=== PATIENT | female | born 1955 | race Caucasian/White ===

== ENCOUNTER 2017-12-23 07:48 | Emergency (ER) | payer OTHER, BC ==
[~2017-12-23] VITALS: Ht 162.6 cm; Wt 68.0 kg
[~2017-12-23 07:48] MED LIST: DICL50TA3 PO; HYDR1CAP2 PO; PIOG45TA PO; [UNRECOGNIZED DRUG - OTHER]
[2017-12-23] MEDS ORDERED: KETOROLAC 60 MG/2 ML VIAL IM ONE ×2 (08:41→10:45)
--- NOTE | 2017-12-23 09:19 | Diagnostic Imaging Report ---
INDICATION: Left shoulder pain and injury COMPARISON: None FINDINGS: 3 views of the left shoulder demonstrate no fracture or dislocation. Minimal degenerative changes seen in the AC and glenohumeral joint. There is no osseous lesion. IMPRESSION: Minimal degenerative joint disease without obvious fracture. Dictated by: Dictated on workstation # [id number]
[2017-12-23] MEDS ORDERED: TRAM-42 PO (11:23)
--- NOTE | 2017-12-23 11:24 | ED Upper Extremity ---
General Chief Complaint: Upper Extremity Stated Complaint: WC, L SHOULDER PAIN AND SWOLLEN HANDS Nursing Triage Note: PT CO OF L SHOULDER WORSENING ON MONDAY CALLED INTO WORK ON MONDAY, STATES L HAND SWOLLEN RINGS TIGHT. Nursing Sepsis Screen: No Definite Risk Source: patient Exam Limitations: no limitations History of Present Illness Date Seen by Provider: Dec 23, 2017 Time Seen by Provider: 08:05 Initial Comments This 62-year-old woman presents to the emergency room with significant left shoulder pain. The pain started on December 21. She recalls no injury. Pain was intense enough that she called into work the next day. She states associated swelling in the left upper extremity causing her rings to be tight. She has been unable to remove her rings. Although she identifies no specific trauma, she does have to do lifting at work. There is no erythema or swelling noted on exam. Patient has pain with range of motion and limited range of motion secondary to pain. She denies any prior injury to the shoulder. She has not been taking any medications except for Tylenol for the pain. She does have some paresthesias extending to her fingers. Pain does appear to be positional. Lidocaine patch used yesterday was not particularly helpful. Patient hollers out in pain with movement of the shoulder or palpation of the shoulder. Allergies and Home Medications Allergies Coded Allergies: Milk (Verified Allergy, Intermediate, 02/25/12) diazepam (Verified Allergy, Intermediate, 02/25/12) morphine (Verified Allergy, Intermediate, 02/25/12) Uncoded Allergies: dimerol (Allergy, Intermediate, 02/25/12) Home Medications Diclofenac Potassium 50 Mg Tablet, 50 MG PO PRN, (Reported) Hydrocodone Bit/Acetaminophen 1 Each Capsule, 1 EACH PO Q6HR PRN, (Reported) Pioglitazone Hcl 45 Mg Tablet, 45 MG PO DAILY, (Reported) Tramadol HCl 50 Mg Tablet, 50 MG PO Q6H PRN for PAIN-MODERATE TO SEVERE, #10 Prescribed by: CRISTIAN KERR on 12/23/17 1123 [levamire] , (Reported) Constitutional: no symptoms reported EENTM: no symptoms reported Respiratory: no symptoms reported Cardiovascular: no symptoms reported Gastrointestinal: no symptoms reported Genitourinary: no symptoms reported Musculoskeletal: see HPI Skin: no symptoms reported Psychiatric/Neurological: See HPI Past Rslnlhk-Trjqpe-Gfandg Hx Patient Social History Alcohol Use: Denies Use Recreational Drug Use: No Smoking Status: Current Everyday Smoker Recent Foreign Travel: No Contact w/Someone Who Travel: No Recent Infectious Disease Expo: No Recent Hopitalizations: No Physical Abuse: No Sexual Abuse: No Immunizations Up To Date Date of Pneumonia Vaccine: Aug 27, 2011 Seasonal Allergies Seasonal Allergies: No Surgeries History of Surgeries: Yes Surgeries: Bladder Surgery, Hysterectomy ("partial"), Orthopedic (right elbow, right knee) Respiratory History of Respiratory Disorde: No Cardiovascular History of Cardiac Disorders: No Neurological History of Neurological Disord: No 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 Genitourinary History of Genitourinary Disor: No Gastrointestinal History of Gastrointestinal Di: No Musculoskeletal History of Musculoskeletal Dis: Yes Musculoskeletal Disorders: Chronic Back Pain Endocrine History of Endocrine Disorders: Yes Endocrine Disorders: Diabetes, Non-Insulin dep HEENT History of HEENT Disorders: No Cancer History of Cancer: No Psychosocial History of Psychiatric Problem: No Suicide Risk Score: 0 Integumentary History of Skin or Integumenta: No Physical Exam Vital Signs Vital Sign - Last 12Hours 12/23/17 08:00 Temp 97.2 Pulse 67 Resp 18 B/P (MAP) 133/80 (97) Pulse Ox 95 O2 Delivery Room Air Capillary Refill : Less Than 3 Seconds General Appearance: WD/WN, mild distress HEENT: PERRL/EOMI, normal ENT inspection Neck: normal inspection Cardiovascular: regular rate, rhythm, no edema, no murmur, other (normal radial pulse) Respiratory: lungs clear, normal breath sounds, no respiratory distress, no accessory muscle use Back: normal inspection Shoulder: No asymmetry, bone tenderness (tenderness with palpation throughout the shoulder but worse on the anterior aspect, especially over the biceps tendon ), No deformity, limited ROM, No swelling Elbow/Forearm: non-tender, no evidence of injury, normal ROM, Left Wrist: Yes normal inspection, Yes non-tender, Yes no evidence of injury, Yes normal ROM Hand: normal inspection, non-tender, no evidence of injury, normal ROM Neurologic/Tendon: normal sensation, normal motor functions Neurologic/Psychiatric: counseling specialist II-XII nml as tested, no motor/sensory deficits, alert, normal mood/affect, oriented x 3 Skin: normal color, warm/dry Progress/Results/Core Measures Results/Orders My Orders Medications Given in ED Vital Signs/I&O Blood Pressure Mean: 97 Progress Note : Progress Note x-ray was negative for acute injury. Patient was felt to likely have a biceps tendinitis. She was started on NSAID therapy with a Toradol injection. A sling was provided for comfort. A note was provided for work. Diagnostic Imaging Diagonstic Imaging: Xray Plain Films/CT/US/NM/MRI: other (left shoulder) Comments Left shoulder x-ray viewed by me and report reviewed. See report below: NAME: [facility] REC#: [id number] PT STATUS: REG ER : 1955 PHYSICIAN: CRISTIAN LUX MD ADMIT DATE: 12/23/17/ER Signed Date of Exam: 12/23/17 SHOULDER, LEFT, 3 VIEWS INDICATION: Left shoulder pain and injury COMPARISON: None FINDINGS: 3 views of the left shoulder demonstrate no fracture or dislocation. Minimal degenerative changes seen in the AC and glenohumeral joint. There is no osseous lesion. IMPRESSION: Minimal degenerative joint disease without obvious fracture. Dictated by: Dictated on workstation # [id number] Dict: 12/23/17 0913 Trans: 12/23/17 1005 Interpreted by: NGOZI BREAUX Electronically signed by: NGOZI BREAUX 12/23/17 1005 Departure Impression Impression: Primary Impression: Biceps tendinitis of left shoulder Additional Impression: Left shoulder pain Qualified Codes: M25.512 - Pain in left shoulder Disposition: 01 HOME, SELF-CARE Condition: Improved Departure-Patient Inst. Decision time for Depature: 11:00 Referrals: CASSANDRA JACKSON MD (PCP/Family) Primary Care Physician Patient Instructions: Tendonitis Add. Discharge Instructions: You may take ibuprofen up to 600 mg every 6 hours as needed for pain. Add Tylenol (acetaminophen) up to 600 mg every 6 hours as needed for additional pain relief. If pain is severe, you may use Ultram (tramadol) as an alternative to Tylenol. You may ice in 20 minute intervals. Use the sling as needed for comfort. Follow-up with your primary care provider or an orthopedic provider as soon as possible. Return to care if symptoms worsen. All discharge instructions reviewed with patient and/or family. Voiced understanding. Scripts Tramadol HCl (Ultram) 50 Mg Tablet 50 MG PO Q6H Y for PAIN-MODERATE TO SEVERE, #10 TAB Prov: CRISTIAN LUX MD 12/23/17 Work/School Note: Work Release Form Date Seen in the Emergency Department: Dec 23, 2017 Return to Work: Dec 24, 2017 Other Restrictions Listed Below: No lifting over 15 pounds with right arm. No lifting with left arm. CRISTIAN LUX MD Dec 23, 2017 11:24
[2017-12-23 11:34] VITALS: BP 129/69
--- OUTSIDE RECORDS SUMMARY | 2017-12-24 10:00 | XMS REPORT | Continuity of Care Document ---
Author Author [facility] Organization [facility] Address Unknown Phone Unavailable Allergies Active Description Code Type Severity Reaction Onset Reported/Identified Relationship to Patient Clinical Status Yes diazepam [id number] Drug Allergy Moderate N/A 02/25/2012 Yes dimerol dimerol Moderate N/A 02/25/2012 Yes milk [id number] Drug Allergy Moderate N/A 02/25/2012 Yes morphine [id number] Drug Allergy Moderate N/A 02/25/2012 Medications There is no data. Problems There is no data. Procedures There is no data. Results There is no data. Encounters ACCT No. Visit Date/Time Discharge Status Pt. Type Provider Facility Loc./Unit Complaint [id number] 02/10/2016 15:51:00 02/10/2016 23:59:59 CLS Outpatient SILVA FREEMAN APRN [facility] QUICK [id number] 12/23/2017 07:50:00 ACT Emergency JOSE J MILLS, CRISTIAN [place] [facility] ER WC, L SHOULDER PAIN AND SWOLLEN HANDS
== END 2017-12-23 11:34 | disposition home or self-care (01) ==
LOC: EDUNIT# 07:48 → ER 07:50
DX: M75.22 Bicipital tendinitis, left shoulder (principal); E11.9 Type 2 diabetes mellitus without complications; F17.200 Nicotine dependence, unspecified, uncomplicated; Z90.710 Acquired absence of both cervix and uterus
CPT/HCPCS: 73030; 99284

== ENCOUNTER → 2017-12-29 | Outpatient (REF) ==
[~2017-12-29] MED LIST changes: +TRAM-42 PO
--- NOTE | 2017-12-29 10:15 | Diagnostic Imaging Report ---
PROCEDURE: MRI left upper extremity without contrast. TECHNIQUE: Multiplanar, multisequence non contrast-enhanced MRI of the left upper extremity was accomplished. INDICATION: Injury to the left shoulder while lifting on 12/21/2017. COMPARISON: Left shoulder radiographs from 12/23/2017 FINDINGS: Multiple sequences demonstrate motion artifact. There are subcortical cystlike changes in the lateral humeral head, consistent with degenerative change. There is mild bone marrow edema at the posterior articular surface of the humeral head, seen on image 14 of series 5. No acute fracture or dislocation is seen. Alignment appears normal. There is tendinosis of the distal supraspinatus and infraspinatus tendons, with a small high-grade partial thickness tear at the distal posterior supraspinatus measuring approximately 4 mm AP. The subscapularis tendon demonstrates mild tendinosis with mild fraying of the cranial most fibers. The teres minor tendon appears intact. The long head of the biceps tendon appears normal in course, with a short segment longitudinal split tear within the bicipital groove (image 17 of series 5). No significant joint effusion is seen. There is minimal fluid in the superior subscapularis recess. Minimal fluid is seen in the subacromial and subdeltoid bursa. The glenoid labrum is suboptimally evaluated in the absence of contrast, however there appears to be irregularity and tearing of the posterior labrum, likely degenerative. No para-labral cysts are seen. The spinoglenoid and suprascapular notches are unremarkable. There are mild degenerative changes in the acromioclavicular joint. The acromion itself has a curved undersurface without significant downsloping or hooking. The coracoclavicular and coracoacromial ligaments are intact. There is mild generalized atrophy of the left rotator cuff without focal muscular atrophy seen. The subcoracoid fat is clear. No axillary lymphadenopathy is seen. IMPRESSION: 1. Tendinosis in the rotator cuff with a very small high-grade partial thickness tear at the distal posterior supraspinatus tendon in the left shoulder. 2. Small amount of fluid in the subacromial and subdeltoid bursa. May represent mild bursitis versus a tiny full thickness fissure component of the supraspinatus tear. 3. Longitudinal split tear of the long head of the biceps tendon in the bicipital groove. 4. Minimal bone marrow edema at the posterior humeral head, may represent mild contusion. Dictated by: Dictated on workstation # [id number]
== END | disposition home or self-care (01) ==
LOC: OCC 08:27
PROVIDERS: ATTEND Nurse Practitioner Family
CPT/HCPCS: 73221

== ENCOUNTER 2022-06-29 06:32 | Emergency (ER) | payer MEDICARE, OTHER ==
[2022-06-29 06:33] VITALS: BP 143/62
--- NOTE | 2022-06-29 06:50 | ED Neurological Problem ---
General Stated Complaint: STROKE LIKE SYMPTOMS Source: patient Exam Limitations: no limitations History of Present Illness Date Seen by Provider: Jun 29, 2022 Time Seen by Provider: 06:30 Initial Comments Patient to the ER by EMS from home with chief complaint that she was getting up to go to the bathroom and could not get her left side of her arm or leg to move. No history of stroke heart disease. She has hypertension but no hyperlipidemia. She is diabetic but not on insulin. EMS remarked that she had left facial droop, flaccid paralysis of her left upper and lower extremity and blood sugar of 138. EKG unremarkable sinus rhythm. She is not a smoker. 2 weeks ago patient had tested positive for COVID and has had a cough ever since. No fevers or chills nausea or vomiting. Allergies and Home Medications Allergies Coded Allergies: diazepam (Verified Allergy, Intermediate, 02/25/12) milk (Verified Allergy, Intermediate, 02/25/12) morphine (Verified Allergy, Intermediate, 02/25/12) Uncoded Allergies: dimerol (Allergy, Intermediate, 02/25/12) Patient Home Medication List Home Medication List Reviewed: Yes Diclofenac Potassium (Cataflam) 50 Mg Tablet, 50 MG PO PRN, (Reported) Entered as Reported by: JORDI RICK on 02/25/12700 Hydrocodone Bit/Acetaminophen (Hydrocodone-Apap 5-500 Cap) 1 Each Capsule, 1 EACH PO Q6HR PRN, (Reported) Entered as Reported by: JORDI RICK on 02/25/12700 Pioglitazone Hcl (Actos) 45 Mg Tablet, 45 MG PO DAILY, (Reported) Entered as Reported by: JORDI RICK on 02/25/12700 Tramadol HCl (Ultram) 50 Mg Tablet, 50 MG PO Q6H PRN for PAIN-MODERATE TO SEVERE Prescribed by: CRISTIAN KERR on 12/23/17 1123 [levamire] , (Reported) Entered as Reported by: JORDI RICK on 02/25/12 07 Review of Systems Review of Systems Constitutional: No chills, No fever; malaise Eyes: Denies Blurred Vision, Denies Drainage Ears, Nose, Mouth, Throat: denies ear pain, denies nose pain Respiratory: cough, phlegm; No short of breath, No wheezing Cardiovascular: No edema, No Hx of Intervention, No palpitations, No syncope, No vascular heart diseas Gastrointestinal: No abdominal pain, No constipation, No diarrhea Genitourinary: No discharge, No dysuria Musculoskeletal: No back pain, No joint pain Skin: No pruritus, No rash Psychiatric/Neurological: Denies Cognitive Dysfunction; Headache; Denies Numbness All Other Systems Reviewed Negative Unless Noted: Yes Past Avzxnfl-Mlhitj-Steabl Hx Patient Social History Tobacco Use?: No Use of E-Cig and/or Vaping dev: No Substance use?: No Seasonal Allergies Seasonal Allergies: No Past Medical History Surgeries: Yes Bladder Surgery, Hysterectomy, Orthopedic Respiratory: No Cardiac: No 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 oz. 68.307171vn; BMI Method:Stated General Appearance: WD/WN, moderate distress HEENT: PERRL/EOMI, normal ENT inspection, TMs normal, pharynx normal Neck: non-tender, full range of motion, supple, normal inspection Respiratory: lungs clear, normal breath sounds, respiratory distress (Mild with oxygen saturation 91% on room air and a loose, nonproductive cough) Cardiovascular: normal peripheral pulses, regular rate, rhythm, no edema Peripheral Pulses: 2+ Radial Pulses (R), 2+ Radial Pulses (L) Gastrointestinal: normal bowel sounds, non tender, soft Extremities: normal range of motion, non-tender, normal capillary refill Neurologic/Psychiatric: alert, normal mood/affect, oriented x 3 Crainal Nerves: normal hearing, normal speech, PERRL (3 mm reactive bilateral), other (GCS 14 eyes open to verbal stimuli) Coordination/Gait: normal finger to nose Motor/Sensory: pronator drift (L), sensory deficit (Left upper and lower extremities), weak motor strength LUE (0 out of 5), weak motor strength LLE (0 out of 5) Skin: normal color, warm/dry Stroke Onset of Symptoms Date of Onset of Symptoms: Jun 28, 2022 Time of Symptom Onset: 20:00 Onset of Symptoms: Yes Symptoms onset unknown: Yes NIH Stroke Scale Assessment Select: Initial Level of Consciousness: 0=Alert (0), Level of Consciousness- Questions: 0=Answers both month/age (0), LOC Commands: 0=Performs both tasks (0), Gaze: Partial Gaze Palsy (1), Visual [place]: 0=No visual loss (0), Facial Movement (Facial Paresis): 2=Partial paralysis (2), Motor Function- Arms Right: 0=No drift (0), Motor Function-Arms Left: 4=No movement (4), Motor Function-Legs Right: 0=No drift (0), Motor Function-Legs Left: 4=No movement (4), Limb Ataxia: 0=Absent (0), Sensory: 2=Severe to total loss (2), Best Language: 1=Mild to moderat aphasia (1), Dysarthria: 0=Normal (0), Extinction & Inattention: 1=Visual,tactile,auditory (1), Total: 15 Stroke Thrombolytic Exclusion Age 18 or Over: Yes Acute intenal hemorrhage: No History of CVA: No Uncontrolled Coagulation Defec: No Intracranial Hemorrhage: No Severe Hypertension: No GI or Bleed: No Subarachnoid Hemorrhage: No Intracranial Neoplasm/Aneurysm: No Oral Anticoagulants: No Surgery or Trauma: No Puncture of Non-Compressible V: No Recent CPR: No Diabetic Hemorrhagic Retinopat: No Organ Biopsy: No Recent Obstetric Delivery: No Glucose: No (138) Significant Hepatic Dysfunctio: No NIH Stoke Scale >22: No Bacterial Endocarditis: No Pericarditis: No Improving Symptoms: No Platelets: No TPA Contraindication: Yes (Outside the therapeutic window) IV - TPa Received IV - TPa Procedure Performed?: No (Outside the window last known well time greater than 3 hours) Progress/Results/Core Measures Results/Orders Lab Results Laboratory Tests Test 06/29/22 06:26 06/29/22 07:20 06/29/22 08:24 Range/Units White Blood Count 12.2 H 4.3-11.0 10^3/uL Red Blood Count 5.42 H 3.80-5.11 10^6/uL Hemoglobin 15.6 11.5-16.0 g/dL Hematocrit 48 35-52 % Mean Corpuscular Volume 88 80-99 fL Mean Corpuscular Hemoglobin 29 25-34 pg Mean Corpuscular Hemoglobin Concent 33 32-36 g/dL Red Cell Distribution Width 14.4 10.0-14.5 % Platelet Count 261 130-400 10^3/uL Mean Platelet Volume 11.7 9.0-12.2 fL Immature Granulocyte % (Auto) 0 % Neutrophils (%) (Auto) 67 42-75 % Lymphocytes (%) (Auto) 17 12-44 % Monocytes (%) (Auto) 12 0-12 % Eosinophils (%) (Auto) 3 0-10 % Basophils (%) (Auto) 1 0-10 % Neutrophils # (Auto) 8.2 H 1.8-7.8 10^3/uL Lymphocytes # (Auto) 2.1 1.0-4.0 10^3/uL Monocytes # (Auto) 1.4 H 0.0-1.0 10^3/uL Eosinophils # (Auto) 0.3 0.0-0.3 10^3/uL Basophils # (Auto) 0.1 0.0-0.1 10^3/uL Immature Granulocyte # (Auto) 0.1 0.0-0.1 10^3/uL Prothrombin Time 13.0 12.2-14.7 SEC INR Comment 0.9 0.8-1.4 Activated Partial Thromboplast Time 41 H 24-35 SEC D-Dimer 1.48 H 0.00-0.49 UG/ML Sodium Level 137 135-145 MMOL/L Potassium Level 4.1 3.6-5.0 MMOL/L Chloride Level 103 98-107 MMOL/L Carbon Dioxide Level 21 21-32 MMOL/L Anion Gap 13 5-14 MMOL/L Blood Urea Nitrogen 9 7-18 MG/DL Creatinine 0.72 0.60-1.30 MG/DL Estimat Glomerular Filtration Rate 90 BUN/Creatinine Ratio 13 Glucose Level 159 H 70-105 MG/DL Calcium Level 9.6 8.5-10.1 MG/DL Corrected Calcium 9.5 8.5-10.1 MG/DL Total Bilirubin 0.6 0.1-1.0 MG/DL Aspartate Amino Transf (AST/SGOT) 16 5-34 U/L Alanine Aminotransferase (ALT/SGPT) 15 0-55 U/L Alkaline Phosphatase 62 40-136 U/L Troponin I < 0.028 <0.028 NG/ML Total Protein 7.5 6.4-8.2 GM/DL Albumin 4.1 3.2-4.5 GM/DL Urine Color YELLOW Urine Clarity CLEAR Urine pH 6.0 5-9 Urine Specific [place] 1.010 L 1.016-1.022 Urine Protein NEGATIVE NEGATIVE Urine Glucose (UA) 3+ H NEGATIVE Urine Ketones NEGATIVE NEGATIVE Urine Nitrite NEGATIVE NEGATIVE Urine Bilirubin NEGATIVE NEGATIVE Urine Urobilinogen 0.2 < = 1.0 MG/DL Urine Leukocyte Esterase NEGATIVE NEGATIVE Urine RBC (Auto) NEGATIVE NEGATIVE Urine RBC RARE /HPF Urine WBC 0-2 /HPF Urine Squamous Epithelial Cells >50 H /HPF Urine Crystals NONE /LPF Urine Bacteria TRACE /HPF Urine Casts NONE /LPF Urine Mucus NEGATIVE /LPF Urine Culture Indicated NO Glucometer 166 H 70-110 MG/DL My Orders Orders - ODRETHA,ALEX J Chest 1 View, Ap/Pa Only (06/29/22 ) Cbc With Automated Diff (06/29/22 06:42) Protime With Inr (06/29/22 06:42) Partial Thromboplastin Time (06/29/22 06:42) Comprehensive Metabolic Panel (06/29/22 06:42) Fibrin Degradation Products (06/29/22 06:42) Troponin I [place] (06/29/22 06:42) Ua Culture If Indicated (06/29/22 06:42) Catheter(Urinary) Insert & Ass 03,15 (06/29/22 06:42) Ekg Tracing (06/29/22 06:42) Nothing By Mouth (06/29/22 Breakfast) Accucheck Stat ONCE (06/29/22 06:42) Ed Iv/Invasive Line Start (06/29/22 06:42) Ed Iv/Invasive Line Start (06/29/22 06:42) Vital Signs Stroke Patient Q15M (06/29/22 06:42) Ct Head Wo-R/O Stroke (06/29/22 06:42) O2 (06/29/22 06:42) Intake & Output 06,14,22 (06/29/22 06:42) Monitor-Rhythm Ecg Trace Only (06/29/22 06:42) Dysphagia Screening Tool Q10MX1 (06/29/22 06:42) Lipid Panel (06/30/22 06:00) Ct Angio Head/Neck (06/29/22 07:10) Ct Head Perfusion W/ Contrast (06/29/22 07:10) Ed Iv/Invasive Line Start (06/29/22 07:11) Ns Iv 1000 Ml (Sodium Chloride 0.9%) (06/29/22 07:15) Iohexol Injection (Omnipaque 350 Mg/Ml 1 (06/29/22 07:15) Received Contrast (Hold Metformin- Contr (06/29/22 07:15) Ns (Ivpb) (Sodium Chloride 0.9% Ivpb Bag (06/29/22 07:15) Sodium Chloride Flush (Catheter Flush Sy (06/29/22 07:15) Fentanyl Inj (Sublimaze Injection) (06/29/22 08:30) Medications Given in ED Current Medications Medications Dose Ordered Sig/Britni Route Start Time Stop Time Status Last Admin Dose Admin Fentanyl Citrate 50 mcg ONCE ONCE IVP 06/29/22 08:30 06/29/22 08:31 DC 06/29/22 09:20 50 MCG Iohexol 150 ml ONCE ONCE IV 06/29/22 07:15 06/29/22 07:17 DC 06/29/22 08:05 150 ML Sodium Chloride 10 ml NEEDED PRN IV 06/29/22 07:15 06/29/22 08:06 10 ML Sodium Chloride 100 ml ONCE ONCE IV 06/29/22 07:15 06/29/22 07:17 DC 06/29/22 08:06 80 ML Vital Signs/I&O 06/29/22 06/29/22 06/29/22 06/29/22 06:33 06:33 06:33 09:40 Temp 36.6 36.0 Pulse 100 100 101 Resp 18 18 15 B/P (MAP) 143/62 143/62 (89) 148/68 Pulse Ox 90 90 90 91 O2 Delivery Room Air Room Air Nasal Cannula O2 Flow Rate 2.00 Progress Progress Note #1: Time: 06:52 Progress Note Blood glucose 138 per EMS. Profound left-sided weakness and rightward gaze. NIH initially 15 points but well outside the window for tPA. Plan to get a CT next. If she does not have intracranial hemorrhage or tumor then the neck step would be a CT angiogram to pursue ischemic stroke. Progress Note #2: Time: 08:42 Progress Note We did discuss the possibility of transfer and procedural intervention with the patient and she and her family were in agreement with doing a procedure if it were offered. Helicopter has been called. Images have been clouded. Initial ECG Impression Date: Jun 29, 2022 Initial ECG Impression Time: 07:04 Initial ECG Rate: 90 Initial ECG Rhythm: Normal Sinus Initial ECG Intervals: Normal Initial ECG Impression: Normal Comment Normal sinus rhythm with an incomplete right bundle branch block. No clinically relevant ST elevation or depression. 1/2-[address] depression in leads II, III and aVF. Diagnostic Imaging Diagonstic Imaging: Xray Plain Films/CT/US/NM/MRI: chest Comments No acute cardiopulmonary process. [facility], [place] NAME: TAY LEDBETTER [facility] REC#: [id number] PT STATUS: REG ER : 1955 PHYSICIAN: ALEX PUGH MD ADMIT DATE: 06/29/22/ER Signed Date of Exam:06/29/22 CHEST 1 VIEW, AP/PA ONLY Indication: Altered mental status. Slurred speech. COMPARISON: None FINDINGS: Single frontal radiograph view the chest was obtained and shows normal cardiac silhouette. Pulmonary vasculature is slightly prominent. There is also mild diffuse prominence of the interstitium. No focal alveolar consolidation, large effusion, nor pneumothorax is seen. Osseous structures show no gross acute abnormalities. IMPRESSION: 1. Mild diffuse prominence of the interstitium. There is no prior available for comparison. Conceivably, findings could be on the basis of chronic interstitial lung disease. Interstitial pneumonia is a consideration, as is mild interstitial pulmonary edema given the slight cephalization the pulmonary vasculature. Dictated by: Dictated on workstation # [id number] Dict: 06/29/22 0702 Trans: 06/29/22 1150 [facility] [id number] Interpreted by: LAVERN ANGELES MD Electronically signed by: LAVERN ANGELES MD 06/29/22 1150 Reviewed: Reviewed by Me Diagonstic Imaging: CT Plain Films/CT/US/NM/MRI: head Comments No acute intracranial hemorrhage, mass-effect, midline shift or tumor. No calvarial fracture. [facility] [place], [place] NAME: TAY LEDBETTER [facility] REC#: [id number] PT STATUS: REG ER : 1955 PHYSICIAN: ALEX PUGH MD ADMIT DATE: 06/29/22/ER Draft Date of Exam:06/29/22 CT HEAD WO-R/O STROKE INDICATION: Altered mental status. Slurred speech TECHNIQUE: Routine non contrast-enhanced axial images were obtained from the skull base to the vertex. Auto Exposure Controls were utilized during the CT exam to meet ALARA standards for radiation dose reduction COMPARISON: None. FINDINGS: The ventricles and cortical sulci are normal in size and contour. There is no midline shift or mass-effect. No acute intra-axial hemorrhage is seen. There are no abnormal areas of increased or decreased density to suggest acute hemorrhage or edema. No extra-axial masses or collections are present. The bony calvarium is intact. The visualized paranasal sinuses are unremarkable. The mastoid air cells are clear. IMPRESSION: 1. No acute intracranial abnormality. No CT evidence of mass, acute infarct or intracranial hemorrhage. Results were called to Dr. Pugh by Dr. Angeles at 0700 hours on 06/29/2022. Dictated on workstation # [id number] Dict: 06/29/22 0700 Trans: 06/29/22 0704 [facility] [id number] Interpreted by: LAVERN ANGELES MD Electronically signed by: Reviewed: Reviewed by Me, Discussed w/Radiologist Diagonstic Imaging: CT (angio) Plain Films/CT/US/NM/MRI: head (neck) Comments distal right M1 into multiple MCA vessels. Inf branch has reconstitution changes. Occ Right Cervical ICA starting at skull base and reconstituted distally. [facility] [place], [place] NAME: TAY LEDBETTER [facility] REC#: [id number] PT STATUS: REG ER : 1955 PHYSICIAN: ALEX PUGH MD ADMIT DATE: 06/29/22/ER Draft Date of Exam:06/29/22 CT ANGIO HEAD/NECK CLINICAL INDICATION: Patient with left-sided weakness. EXAMS: 1: Head CT with IV contrast. Auto Exposure Controls were utilized during the CT exam to meet ALARA standards for radiation dose reduction. 2: CT angiogram of the head and neck performed with 75 cc of Omnipaque 350 IV contrast. Sagittal and coronal MIP reformations were created for better visualization of vascular anatomy. COMPARISON: Head CT without contrast dated 06/29/2022. FINDINGS: HEAD CT: There is the appearance of subtle loss of ramires-white matter distinction involving the lateral aspect of the right frontal lobe seen on series 3, images 28 through 33. There is no intracranial hemorrhage or abnormal IV contrast enhancement. The brain parenchymal volume appears appropriate for patient's age. Mild chronic small vessel ischemic disease is noted. There is normal ramires-white matter distinction. There is no significant midline shift or herniation. There is no evidence of hydrocephalus. The basal cisterns are unremarkable. The skull, extracranial soft tissue, and orbits are unremarkable. The paranasal sinuses are unremarkable. Temporal bones show no significant abnormality. CT ANGIOGRAM: There is dense contrast bolus within the right subclavian vein and superior vena cava which causes streak artifact obscuring portions of the aortic arch and proximal great vessels. There is mild stenosis involving the origin of the right subclavian artery related to atherosclerotic disease; otherwise, the remainder of the right subclavian artery is patent. The left subclavian artery is patent. The brachiocephalic artery is patent. There is motion stairstep artifact obscuring the bilateral common carotid arteries. There is artifact obscuring portions of the right common carotid artery with no definite significant stenosis seen. The right ECA is patent. There is dense atherosclerotic disease involving the cervical right ICA bulb which is obscured by streak artifact. There appears to be a greater than 70% stenosis but less than near occlusion involving the origin and proximal cervical right ICA. There is contrast seen within the cervical right ICA distal to this area which progressively demonstrates significant narrowing. There is at least 70% stenosis involving the mid cervical right ICA and distal cervical right ICA with occlusion seen at the proximal petrous right ICA region. There is reconstitution of the right ICA terminus region. The right M1 MCA is patent but demonstrates occlusion in the distal right M1 MCA/genu region. There is concern for intravascular thrombus within the distal right M1 MCA/genu region which extends into the proximal inferior branch of the right M2 MCA which is reconstituted in the region of the sylvian fissure. There is also concern for intravascular thrombus within the proximal aspect of the superior branch of the right M2 MCA with minimal reconstitution distally. The anterior temporal branch of the right MCA appears patent. The ACAs and distal branches are patent. The CA and distal branches are patent. There is significant motion artifact obscuring the mid left common carotid artery limiting evaluation; otherwise, the left common carotid artery is patent. The left ECA is patent. There is motion and atherosclerotic calcification involving the origin of the cervical left ICA which appears to involve grossly at least 70% stenosis. The remainder of the cervical left ICA is patent. There are areas of atherosclerotic disease and mild narrowing involving the cavernous and paraclinoid left ICA. The petrous, cavernous, and paraclinoid ICA are otherwise patent. There is motion artifact obscuring the proximal and mid bilateral cervical vertebral arteries; otherwise, the visualized mid to distal cervical vertebral arteries are patent. The bilateral PICA, intradural vertebral arteries, basilar artery, bilateral superior cerebellar arteries, and bilateral cafeteria cook and distal branches are patent. The dural venous sinuses are patent. The neck soft tissue structures show no significant abnormality. There is emphysematous lung disease noted in the upper lung [place]. There are cervical spine vertebral body spurs and facet arthropathy. IMPRESSION: 1: There appears to be very subtle loss of ramires-white matter distinction involving the lateral right frontal lobe region, concerning for early acute infarct changes. There is no intracranial hemorrhage or abnormal IV contrast enhancement. 2: There is large vessel occlusion with complete occlusion of the distal cervical right ICA which is reconstituted at the right ICA terminus region. 3: There is large vessel occlusion with concern for intravascular thrombus involving the distal right M1 MCA/genu region extending into the inferior and superior branches of the right M2 MCA. There is reconstitution of the inferior branches of the right M2 MCA in the sylvian fissure region. There is minimal reconstitution of the superior branches of the right M2 MCA region. 4: There is significant motion artifact and beam hardening artifact obscuring multiple areas of the neck vascular structures as described above. 5: There is concern for greater than 70% stenosis but less than near occlusion involving the bilateral cervical ICA. 6: The results of this report were discussed with Dr. Alex Pugh via the telephone on 06/29/2022 at 0830 hours. Dictated on workstation # [id number] Dict: 06/29/22 0812 Trans: 06/29/22 0900 [id number] Interpreted by: MIKEL BRAUN MD Electronically signed by: Reviewed: Reviewed by Me, Discussed w/Radiologist Diagonstic Imaging: CT Plain Films/CT/US/NM/MRI: head (Perfusion scan) Comments Perfusion was uninterpretable due to bolus timing. Reviewed: Reviewed by Me, Discussed w/Radiologist Consults : Consults Notes 0700: [facility] Neurologist bd special education teacher. Dr. Ibarra: High suspicion for a large vessel occlusion. Get a CT angiogram and CT perfusion please. 0832: Discussed the case with Dr. Bailey and he accepts the patient to the hospital second floor [facility]. We have called for helicopter for transport. Departure Impression Primary Impression: Cerebrovascular accident due to cerebral artery occlusion Additional Impression: ICAO (internal carotid artery occlusion) Qualified Codes: I65.21 - Occlusion and stenosis of right carotid artery Disposition: XF [facility] HOSP Condition: Critical Transfer Transfer Reason: Exceeds level of care Time Spoke to Accepting Phy: 08:[address] Hale and accepts to [facility] for ischemic stroke large vessel occlusion. Two helicopter services have declined due to weather. Transfer Facility: [facility] Method of Transfer: EMS Departure-Patient Inst. Referrals: CASSANDRA JACKSON MD (PCP/Family) Primary Care Physician ALEX PUGH Jun 29, 2022 06:50
[2022-06-29 06:55] LABS: BASOPHILS # (AUTO) 0.1 10^3/uL (0.0-0.1); BASOPHILS % (AUTO) 1 % (0-10); EOSINOPHILS # (AUTO) 0.3 10^3/uL (0.0-0.3); EOSINOPHILS % (AUTO) 3 % (0-10); HEMATOCRIT 48 % (35-52); HEMOGLOBIN 15.6 g/dL (11.5-16.0); LYMPHOCYTES # (AUTO) 2.1 10^3/uL (1.0-4.0); LYMPHOCYTES % (AUTO) 17 % (12-44); MEAN CORPUSCULAR HEMOGLOBIN 29 pg (25-34); MEAN CORPUSCULAR HGB CONC 33 g/dL (32-36); MEAN CORPUSCULAR VOLUME 88 fL (80-99); MEAN PLATELET VOLUME 11.7 fL (9.0-12.2); MONOCYTES # (AUTO) 1.4 10^3/uL (0.0-1.0); MONOCYTES % (AUTO) 12 % (0-12); NEUTROPHILS # (AUTO) 8.2 10^3/uL (1.8-7.8); NEUTROPHILS % (AUTO) 67 % (42-75); PLATELET COUNT 261 10^3/uL (130-400); WHITE BLOOD COUNT 12.2 10^3/uL (4.3-11.0)
[2022-06-29 06:59] LABS: ALBUMIN 4.1 GM/DL (3.2-4.5); CHLORIDE 103 MMOL/L (98-107); POTASSIUM 4.1 MMOL/L (3.6-5.0); SODIUM 137 MMOL/L (135-145)
[2022-06-29 07:01] LABS: CALCIUM 9.6 MG/DL (8.5-10.1)
[2022-06-29 07:02] LABS: GLUCOSE 159 MG/DL (70-105); TOTAL PROTEIN 7.5 GM/DL (6.4-8.2)
[2022-06-29 07:03] LABS: CARBON DIOXIDE 21 MMOL/L (21-32)
[2022-06-29 07:04] LABS: BILIRUBIN,TOTAL 0.6 MG/DL (0.1-1.0)
--- NOTE | 2022-06-29 07:04 | Diagnostic Imaging Report ---
INDICATION: Altered mental status. Slurred speech TECHNIQUE: Routine non contrast-enhanced axial images were obtained from the skull base to the vertex. Auto Exposure Controls were utilized during the CT exam to meet ALARA standards for radiation dose reduction COMPARISON: None. FINDINGS: The ventricles and cortical sulci are normal in size and contour. There is no midline shift or mass-effect. No acute intra-axial hemorrhage is seen. There are no abnormal areas of increased or decreased density to suggest acute hemorrhage or edema. No extra-axial masses or collections are present. The bony calvarium is intact. The visualized paranasal sinuses are unremarkable. The mastoid air cells are clear. IMPRESSION: 1. No acute intracranial abnormality. No CT evidence of mass, acute infarct or intracranial hemorrhage. Results were called to Dr. Pugh by Dr. Angeles at 0700 hours on 06/29/2022. Dictated by: Dictated on workstation # [id number]
[2022-06-29 07:05] LABS: ALKALINE PHOSPHATASE 62 U/L (40-136); CREATININE SERUM 0.72 MG/DL (0.60-1.30); GFR ESTIMATED 90
[2022-06-29 07:06] LABS: BUN/CREATININE RATIO 13
[2022-06-29 07:07] LABS: FIBRIN DEGRADATION PRODUCTS 1.48 UG/ML (0.00-0.49); INR 0.9 (0.8-1.4)
--- NOTE | 2022-06-29 07:07 | Diagnostic Imaging Report ---
Indication: Altered mental status. Slurred speech. COMPARISON: None FINDINGS: Single frontal radiograph view the chest was obtained and shows normal cardiac silhouette. Pulmonary vasculature is slightly prominent. There is also mild diffuse prominence of the interstitium. No focal alveolar consolidation, large effusion, nor pneumothorax is seen. Osseous structures show no gross acute abnormalities. IMPRESSION: 1. Mild diffuse prominence of the interstitium. There is no prior available for comparison. Conceivably, findings could be on the basis of chronic interstitial lung disease. Interstitial pneumonia is a consideration, as is mild interstitial pulmonary edema given the slight cephalization the pulmonary vasculature. Dictated by: Dictated on workstation # [id number]
[2022-06-29 07:08] LABS: ALANINE AMINOTRANSFERASE 15 U/L (0-55)
[2022-06-29] MEDS ORDERED: IOHEXOL 350 MG/ML 150 ML (OMNIPAQUE 350) VIAL IV ONE (07:15)
[2022-06-29] MEDS ORDERED: CATHETER FLUSH 10 ML SYR IV PRN (07:15)
[2022-06-29] MEDS ORDERED: NS 100 ML (IVPB) BAG IV ONE (07:15)
[2022-06-29] MEDS ORDERED: HOLD METFORMIN - RECEIVED CONTRAST 20 ML VIAL IV SCH (07:15)
[2022-06-29] MEDS ORDERED: NS IV 1000 ML 1,000 ML IV SCH (07:15)
[2022-06-29 07:31] LABS: BILIRUBIN,URINE NEGATIVE (NEGATIVE); CLARITY,URINE CLEAR; COLOR,URINE YELLOW; GLUCOSE, URINE (UA) 3+ (NEGATIVE); KETONES,URINE NEGATIVE (NEGATIVE); LEUKOCYTE ESTERASE ,URINE NEGATIVE (NEGATIVE); NITRITE,URINE NEGATIVE (NEGATIVE); PROTEIN,URINE NEGATIVE (NEGATIVE)
[2022-06-29] MEDS ORDERED: fentaNYL INJ 100 MCG/2 ML AMP IVP ONE (08:30)
[2022-06-29 08:55] LABS: RBC,URINE RARE /HPF
[2022-06-29 08:56] LABS: BACTERIA,URINE TRACE /HPF; SQUAMOUS EPITHELIAL CELL,UR >50 /HPF; WBC,URINE 0-2 /HPF
--- NOTE | 2022-06-29 09:01 | Diagnostic Imaging Report ---
CLINICAL INDICATION: Patient with left-sided weakness. EXAMS: 1: Head CT with IV contrast. Auto Exposure Controls were utilized during the CT exam to meet ALARA standards for radiation dose reduction. 2: CT angiogram of the head and neck performed with 75 cc of Omnipaque 350 IV contrast. Sagittal and coronal MIP reformations were created for better visualization of vascular anatomy. COMPARISON: Head CT without contrast dated 06/29/2022. FINDINGS: HEAD CT: There is the appearance of subtle loss of ramires-white matter distinction involving the lateral aspect of the right frontal lobe seen on series 3, images 28 through 33. There is no intracranial hemorrhage or abnormal IV contrast enhancement. The brain parenchymal volume appears appropriate for patient's age. Mild chronic small vessel ischemic disease is noted. There is normal ramires-white matter distinction. There is no significant midline shift or herniation. There is no evidence of hydrocephalus. The basal cisterns are unremarkable. The skull, extracranial soft tissue, and orbits are unremarkable. The paranasal sinuses are unremarkable. Temporal bones show no significant abnormality. CT ANGIOGRAM: There is dense contrast bolus within the right subclavian vein and superior vena cava which causes streak artifact obscuring portions of the aortic arch and proximal great vessels. There is mild stenosis involving the origin of the right subclavian artery related to atherosclerotic disease; otherwise, the remainder of the right subclavian artery is patent. The left subclavian artery is patent. The brachiocephalic artery is patent. There is motion stairstep artifact obscuring the bilateral common carotid arteries. There is artifact obscuring portions of the right common carotid artery with no definite significant stenosis seen. The right ECA is patent. There is dense atherosclerotic disease involving the cervical right ICA bulb which is obscured by streak artifact. There appears to be a greater than 70% stenosis but less than near occlusion involving the origin and proximal cervical right ICA. There is contrast seen within the cervical right ICA distal to this area which progressively demonstrates significant narrowing. There is at least 70% stenosis involving the mid cervical right ICA and distal cervical right ICA with occlusion seen at the proximal petrous right ICA region. There is reconstitution of the right ICA terminus region. The right M1 MCA is patent but demonstrates occlusion in the distal right M1 MCA/genu region. There is concern for intravascular thrombus within the distal right M1 MCA/genu region which extends into the proximal inferior branch of the right M2 MCA which is reconstituted in the region of the sylvian fissure. There is also concern for intravascular thrombus within the proximal aspect of the superior branch of the right M2 MCA with minimal reconstitution distally. The anterior temporal branch of the right MCA appears patent. The ACAs and distal branches are patent. The MCAs and distal branches are patent. There is significant motion artifact obscuring the mid left common carotid artery limiting evaluation; otherwise, the left common carotid artery is patent. The left ECA is patent. There is motion and atherosclerotic calcification involving the origin of the cervical left ICA which appears to involve grossly at least 70% stenosis. The remainder of the cervical left ICA is patent. There are areas of atherosclerotic disease and mild narrowing involving the cavernous and paraclinoid left ICA. The petrous, cavernous, and paraclinoid ICA are otherwise patent. There is motion artifact obscuring the proximal and mid bilateral cervical vertebral arteries; otherwise, the visualized mid to distal cervical vertebral arteries are patent. The bilateral PICA, intradural vertebral arteries, basilar artery, bilateral superior cerebellar arteries, and bilateral cloth mender and distal branches are patent. The dural venous sinuses are patent. The neck soft tissue structures show no significant abnormality. There is emphysematous lung disease noted in the upper lung montalvo. There are cervical spine vertebral body spurs and facet arthropathy. IMPRESSION: 1: There appears to be very subtle loss of ramires-white matter distinction involving the lateral right frontal lobe region, concerning for early acute infarct changes. There is no intracranial hemorrhage or abnormal IV contrast enhancement. 2: There is large vessel occlusion with complete occlusion of the distal cervical right ICA which is reconstituted at the right ICA terminus region. 3: There is large vessel occlusion with concern for intravascular thrombus involving the distal right M1 MCA/genu region extending into the inferior and superior branches of the right M2 MCA. There is reconstitution of the inferior branches of the right M2 MCA in the sylvian fissure region. There is minimal reconstitution of the superior branches of the right M2 MCA region. 4: There is significant motion artifact and beam hardening artifact obscuring multiple areas of the neck vascular structures as described above. 5: There is concern for greater than 70% stenosis but less than near occlusion involving the bilateral cervical ICA. 6: The results of this report were discussed with Dr. Alex Pugh via the telephone on 06/29/2022 at 0830 hours. Dictated by: Dictated on workstation # [id number]
[2022-06-29 09:40] VITALS: BP 148/68
== END 2022-06-29 09:40 | disposition short-term general hospital (02) ==
LOC: EDUNIT# 06:32 → ER 06:35
DX: I63.50 Cerebral infarction due to unspecified occlusion or stenosis of unspecified cerebral artery (principal); I65.21 Occlusion and stenosis of right carotid artery; Z86.16 Personal history of COVID-19
CPT/HCPCS: 0042T; 36415; 51702; 70450; 70496; 70498; 71045; 80053; 81000; 82947; 84484; 85025; 85379; 85610; 85730; 93005; 93041

== ENCOUNTER 2022-12-03 08:22 | Emergency (ER) | payer MEDICARE, OTHER ==
[~2022-12-03] VITALS: Ht 162 cm; Wt 62.0 kg
[2022-12-03 08:45] LABS: BASOPHILS # (AUTO) 0.1 10^3/uL (0.0-0.1); BASOPHILS % (AUTO) 1 % (0-10); EOSINOPHILS # (AUTO) 0.2 10^3/uL (0.0-0.3); EOSINOPHILS % (AUTO) 2 % (0-10); HEMATOCRIT 42 % (35-52); HEMOGLOBIN 13.5 g/dL (11.5-16.0); LYMPHOCYTES # (AUTO) 1.9 10^3/uL (1.0-4.0); LYMPHOCYTES % (AUTO) 21 % (12-44); MEAN CORPUSCULAR HEMOGLOBIN 28 pg (25-34); MEAN CORPUSCULAR HGB CONC 32 g/dL (32-36); MEAN CORPUSCULAR VOLUME 88 fL (80-99); MEAN PLATELET VOLUME 10.1 fL (9.0-12.2); MONOCYTES # (AUTO) 1.1 10^3/uL (0.0-1.0); MONOCYTES % (AUTO) 12 % (0-12); NEUTROPHILS # (AUTO) 5.8 10^3/uL (1.8-7.8); NEUTROPHILS % (AUTO) 64 % (42-75); PLATELET COUNT 293 10^3/uL (130-400); WHITE BLOOD COUNT 8.9 10^3/uL (4.3-11.0)
[2022-12-03] MEDS ORDERED: NS IV 500 ML 500 ML IV ONE (08:45)
[2022-12-03] MEDS ORDERED: HALOPERIDOL 5 MG/ML (HALDOL) VIAL IV ONE (08:45)
[2022-12-03 08:56] LABS: ALBUMIN 3.7 GM/DL (3.2-4.5); POTASSIUM 4.5 MMOL/L (3.6-5.0)
[2022-12-03 08:57] LABS: CALCIUM 9.2 MG/DL (8.5-10.1)
[2022-12-03 08:59] LABS: BILIRUBIN,URINE NEGATIVE (NEGATIVE); CLARITY,URINE CLOUDY; COLOR,URINE YELLOW; GLUCOSE, URINE (UA) 3+ (NEGATIVE); KETONES,URINE NEGATIVE (NEGATIVE); LEUKOCYTE ESTERASE ,URINE 2+ (NEGATIVE); NITRITE,URINE POSITIVE (NEGATIVE); PH,URINE 5.5 (5-9); PROTEIN,URINE TRACE (NEGATIVE)
[2022-12-03 08:59] LABS: TOTAL PROTEIN 6.9 GM/DL (6.4-8.2)
[2022-12-03 09:00] LABS: BILIRUBIN,TOTAL 0.4 MG/DL (0.1-1.0)
[2022-12-03 09:02] LABS: CREATININE SERUM 0.63 MG/DL (0.60-1.30)
[2022-12-03 09:19] LABS: BACTERIA,URINE FEW /HPF; SQUAMOUS EPITHELIAL CELL,UR RARE /HPF; WBC,URINE TNTC /HPF
--- NOTE | 2022-12-03 09:24 | ED General ---
General Chief Complaint: Altered Mental Status Stated Complaint: AMS Nursing Triage Note: PT ARRIVED PER EMS, PT HAS ALTERED MENTAL STATUS FROM HER NORMAL, PT VERY CONFUSED TODAY, PT O2 SAT 88% ON RA. PT HAS HX OF CVA. PT HAS BOOT ON L FOOT FOR FOOT DROP. PT TEARFUL AND VERY ANXIOUS. PT IS BEING TREATED FOR UTI Source of Information: Patient, EMS, Spouse Exam Limitations: Physical Impairments History of Present Illness Date Seen by Provider: Dec 03, 2022 Time Seen by Provider: 08:24 Initial Comments [facility] with altered mental status and talking about docks. She has had previous stroke but has apparently progressed in rehab at the [facility]. Reportedly she has been able to stand with assistance and is usually oriented. EMS was called for the change in mental status with babbling and anxiety and talking about docks. They report normal blood sugar and normal blood pressure. He did did not note any falls or injury. Patient will intermittently be agitated and then intermittently able to answer questions well. arrived shortly after patient's arrival by EMS and he relates history of stroke and that this is a change. She does recognize him and he is able to calm her with reassurance. Apparently patient has had recent urinary tract infection that may have been a yeast infection as she is only on Diflucan. She is diabetic and has insulin orders on [facility] medication records. No report of recent illness by EMS report or from other than recent stroke. Review of previous records shows ER visit on June 29 for concerns for stroke. I did review CT angiogram done at that time that shows right ICA occlusion as well as right MCA M1 and M2 occlusion. Patient was transferred to [facility] for further stroke work-up and evaluation given large vessel occlusion. Timing/Duration: 1 Hour Severity: Moderate Associated Systoms: Other (Altered mental status/delirium) Allergies and Home Medications Allergies Coded Allergies: diazepam (Verified Allergy, Intermediate, 02/25/12) milk (Verified Allergy, Intermediate, 02/25/12) morphine (Verified Allergy, Intermediate, 02/25/12) Uncoded Allergies: dimerol (Allergy, Intermediate, 02/25/12) Patient Home Medication List Home Medication List Reviewed: Yes Diclofenac Potassium (Cataflam) 50 Mg Tablet, 50 MG PO PRN, (Reported) Entered as Reported by: JORDI RICK on 02/25/12 0701 Hydrocodone Bit/Acetaminophen (Hydrocodone-Apap 5-500 Cap) 1 Each Capsule, 1 EACH PO Q6HR PRN, (Reported) Entered as Reported by: JORDI RICK on 02/25/12700 Pioglitazone Hcl (Actos) 45 Mg Tablet, 45 MG PO DAILY, (Reported) Entered as Reported by: JORDI RICK on 02/25/12700 Tramadol HCl (Ultram) 50 Mg Tablet, 50 MG PO Q6H PRN for PAIN-MODERATE TO SEVERE Prescribed by: CRISTIAN KERR on 12/23/17 1123 [levamire] , (Reported) Entered as Reported by: JORDI RICK on 02/25/12700 Review of Systems Review of Systems Constitutional: see HPI; No chills, No fever To obtain review of systems due to altered mental status/delirium. Past Kaexdtl-Lfjabr-Rtgbwe Hx Patient Social History Tobacco Use?: No Smoking Status: Former Smoker Substance use?: No Alcohol Use?: No Pt feels they are or have been: No Immunizations Up To Date Influenza Vaccine Up-to-Date: No; Not Current First/Initial COVID19 Vaccinat: UNKNOWN DATE Second COVID19 Vaccination Jack: UNKNOWN DATE Third COVID19 Vaccination Date: UNKNOWN DATE Seasonal Allergies Seasonal Allergies: No Past Medical History Surgery/Hospitalization HX: STROKE,DIABETES Surgeries: Yes Bladder Surgery, Hysterectomy, Orthopedic Respiratory: No Cardiac: No Neurological: No SONG LYRICIST History: Hysterectomy Genitourinary: No Gastrointestinal: No Musculoskeletal: Yes Chronic Back Pain Endocrine: Yes Diabetes, Non-Insulin dep HEENT: No Cancer: No Psychosocial: No Integumentary: No Family Medical History Reviewed Nursing Family Hx Physical Exam Vital Signs Vital Signs - First Documented 12/03/22 08:25 Temp 36.0 Pulse 99 Resp 18 B/P (MAP) 117/73 (88) Pulse Ox 96 O2 Delivery Nasal Cannula O2 Flow Rate 2.00 Capillary Refill : Less Than 3 Seconds Height, Weight, BMI Height: 5'4.00" Weight: 150lbs. oz. 68.805446bf; 23.00 BMI Method:Stated General Appearance: Anxious, Mild Distress HEENT: PERRL/EOMI, Pharynx Normal Neck: Non Tender, Supple Respiratory: Lungs Clear, Normal Breath Sounds Cardiovascular: No Murmur, Tachycardia Gastrointestinal: Non Tender, Soft Back: Normal Inspection, No CVA Tenderness, No Vertebral Tenderness Extremity: Non Tender, No Calf Tenderness, No Pedal Edema, Other (Boot to the left foot due to history of foot drop) Neurologic/Psychiatric: Alert, Other ( disoriented to situation, time and place. Does know self and recognize .) Skin: Normal Color, Warm/Dry Focused Exam Lactate Level 12/03/22 08:35: Lactic Acid Level 1.02 Lactic Acid Level Laboratory Tests Test 12/03/22 08:35 Lactic Acid Level 1.02 MMOL/L (0.50-2.00) Progress/Results/Core Measures Suspected Sepsis SIRS Temperature: Pulse: 99 Respiratory Rate: 18 Laboratory Tests 12/03/22 08:35: White Blood Count 8.9 Blood Pressure 117 /73 Mean: 88 12/03/22 08:35: Lactic Acid Level 1.02 Laboratory Tests 12/03/22 08:35: Creatinine 0.63, Platelet Count 293, Total Bilirubin 0.4 Results/Orders Lab Results Laboratory Tests Test 12/03/22 08:35 12/03/22 08:50 Range/Units White Blood Count 8.9 4.3-11.0 10^3/uL Red Blood Count 4.82 3.80-5.11 10^6/uL Hemoglobin 13.5 11.5-16.0 g/dL Hematocrit 42 35-52 % Mean Corpuscular Volume 88 80-99 fL Mean Corpuscular Hemoglobin 28 25-34 pg Mean Corpuscular Hemoglobin Concent 32 32-36 g/dL Red Cell Distribution Width 15.1 H 10.0-14.5 % Platelet Count 293 130-400 10^3/uL Mean Platelet Volume 10.1 9.0-12.2 fL Immature Granulocyte % (Auto) 0 % Neutrophils (%) (Auto) 64 42-75 % Lymphocytes (%) (Auto) 21 12-44 % Monocytes (%) (Auto) 12 0-12 % Eosinophils (%) (Auto) 2 0-10 % Basophils (%) (Auto) 1 0-10 % Neutrophils # (Auto) 5.8 1.8-7.8 10^3/uL Lymphocytes # (Auto) 1.9 1.0-4.0 10^3/uL Monocytes # (Auto) 1.1 H 0.0-1.0 10^3/uL Eosinophils # (Auto) 0.2 0.0-0.3 10^3/uL Basophils # (Auto) 0.1 0.0-0.1 10^3/uL Immature Granulocyte # (Auto) 0.0 0.0-0.1 10^3/uL Sodium Level 139 135-145 MMOL/L Potassium Level 4.5 3.6-5.0 MMOL/L Chloride Level 105 98-107 MMOL/L Carbon Dioxide Level 24 21-32 MMOL/L Anion Gap 10 5-14 MMOL/L Blood Urea Nitrogen 8 7-18 MG/DL Creatinine 0.63 0.60-1.30 MG/DL Estimat Glomerular Filtration Rate 96 BUN/Creatinine Ratio 13 Glucose Level 118 H 70-105 MG/DL Lactic Acid Level 1.02 0.50-2.00 MMOL/L Calcium Level 9.2 8.5-10.1 MG/DL Corrected Calcium 9.4 8.5-10.1 MG/DL Total Bilirubin 0.4 0.1-1.0 MG/DL Aspartate Amino Transf (AST/SGOT) 17 5-34 U/L Alanine Aminotransferase (ALT/SGPT) 18 0-55 U/L Alkaline Phosphatase 60 40-136 U/L C-Reactive Protein High Sensitivity 0.21 0.00-0.50 MG/DL Total Protein 6.9 6.4-8.2 GM/DL Albumin 3.7 3.2-4.5 GM/DL Thyroid Stimulating Hormone (TSH) 3.54 0.35-4.94 UIU/ML Urine Color YELLOW Urine Clarity CLOUDY Urine pH 5.5 5-9 Urine Specific [place] 1.020 1.016-1.022 Urine Protein TRACE H NEGATIVE Urine Glucose (UA) 3+ H NEGATIVE Urine Ketones NEGATIVE NEGATIVE Urine Nitrite POSITIVE H NEGATIVE Urine Bilirubin NEGATIVE NEGATIVE Urine Urobilinogen 0.2 < = 1.0 MG/DL Urine Leukocyte Esterase 2+ H NEGATIVE Urine RBC (Auto) 3+ H NEGATIVE Urine RBC NONE /HPF Urine WBC TNTC H /HPF Urine Squamous Epithelial Cells RARE /HPF Urine Crystals NONE /LPF Urine Bacteria FEW H /HPF Urine Casts NONE /LPF Urine Mucus NEGATIVE /LPF Urine Culture Indicated YES My Orders Orders - JUAN CROWELL MD Chest 1 View, Ap/Pa Only (12/03/22 08:32) Cbc With Automated Diff (12/03/22 08:32) Comprehensive Metabolic Panel (12/03/22 08:32) Hs C Reactive Protein (12/03/22 08:32) Thyroid Stimulating Hormone (12/03/22 08:32) Ua Culture If Indicated (12/03/22 08:32) Ed Iv/Invasive Line Start (12/03/22 08:32) Ns Iv 500 Ml (Sodium Chloride 0.9%) (12/03/22 08:45) Ct Head Wo (12/03/22 08:32) Haloperidol Injection (Haldol Injectio (12/03/22 08:45) Urine Culture (12/03/22 08:50) Lactic Acid Analyzer (12/03/22 09:31) Blood Culture (12/03/22 09:31) Doxycycline Injection (Vibramycin Inject (12/03/22 09:45) Ceftriaxone 1 Gm Pre-Mix (Rocephin 1 Gm (12/03/22 09:36) Medications Given in ED Current Medications Medications Dose Ordered Sig/Britni Route Start Time Stop Time Status Last Admin Dose Admin Doxycycline Hyclate 100 mg/ Sodium Chloride 100 ml @ 100 mls/hr ONCE ONCE IV 12/03/22 09:45 12/03/22 10:44 DC 12/03/22 10:28 100 MLS/HR Haloperidol Lactate 2.5 mg ONCE ONCE IV 12/03/22 08:45 12/03/22 08:46 DC 12/03/22 08:41 2.5 MG Sodium Chloride 500 ml @ 0 mls/hr Q0M ONCE IV 12/03/22 08:45 12/03/22 08:46 DC 12/03/22 08:41 500 MLS/HR Vital Signs/I&O 12/03/22 08:25 Temp 36.0 Pulse 99 Resp 18 B/P (MAP) 117/73 (88) Pulse Ox 96 O2 Delivery Nasal Cannula O2 Flow Rate 2.00 Capillary Refill : Less Than 3 Seconds Blood Pressure Mean: 88 Progress Note : Progress Note Seen and evaluated. We will check CT of the head as well as get labs and check urine. Normal saline 500 mL bolus ordered. Patient is quite agitated and this is increasing her arm distress. We do need to get CT scan to rule out head bleed. Haldol 2.5 mg IV x1 given which was effective. at bedside. We will get urine via straight cath. Monitor patient. Differential includes intracerebral hemorrhage, electrolyte abnormality, UTI, dehydration. 0930: CBC is grossly normal with normal white count. Chemistry also grossly normal with glucose slightly elevated at 118 but normal creatinine and normal electrolytes. Thyroid function is normal. Urine evaluated is nitrite positive with too numerous to count whites and bacteria consistent with urinary tract infection. Chest x-ray shows atelectasis in the right base. Pending radiology review. 0936: I have spoken with Dr. Arceo, patient's primary care provider. He is very familiar with the patient. 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 He has been able to treat her previous urinary tract infection successfully with doxycycline. We will go ahead and initiate that IV now but also add Rocephin as we have no cultures currently. Urine and blood culture are pending. Patient is not in severe sepsis or septic shock and otherwise doing a little better now. She is resting peacefully with O2 sat 96% on minimal oxygen. We will turn that off. We will go ahead and give doxycycline 100 mg IV now and Rocephin 1 g IV now and continue that outpatient at the [facility] and p.o. versions or equivalents. Dr. Arceo was comfortable trying at the [facility] at least initially. 0945: Plan was discussed with the who agrees. We will give antibiotics and see how she does and check that she is doing well off oxygen. Monitor patient. 1001: CT of the head as noted below. Chest x-ray results noted. Radiology considered atelectasis versus infiltrate in the right base. I believe this is likely atelectasis due to normal white count and low CRP although she will be treated with antibiotics that should cover if she has mild pneumonia. Monitor patient. 1055: Antibiotics completed. Discharged back to [facility] with prescription. I have spoken with family and they agree. Discharge instructions given and nursing report called to [facility] by nursing personnel. Diagnostic Imaging Diagonstic Imaging: CT Plain Films/CT/US/NM/MRI: head Comments [facility] [employer] [facility] [employer], [place] NAME[facility] REC#: [id number] PT STATUS: REG ER : 1955 PHYSICIAN: JUAN CROWELL MD ADMIT DATE: 12/03/22/ER Signed Date of Exam:12/03/22 CT HEAD WO PROCEDURE: CT head without contrast. TECHNIQUE: Multiple contiguous axial images were obtained through the brain without the use of intravenous contrast. Auto Exposure Controls were utilized during the CT exam to meet ALARA standards for radiation dose reduction. INDICATION: Altered mental status. Hypoxia. COMPARISON: 06/29/2022. FINDINGS: Large chronic infarct in the right MCA distribution. Mild to moderate generalized parenchymal volume loss. No CT evidence of acute territorial infarction. No intracranial hemorrhage, mass effect, hydrocephalus, or extra-axial fluid collections. Mucosal thickening in the ethmoid sinuses. The mastoids are clear. No acute osseous findings. IMPRESSION: 1. No acute intracranial CT findings. 2. Large chronic infarct in the anterior right MCA distribution. Dictated by: Dictated on workstation # [id number] Dict: 12/03/2213 Trans: 12/03/2232 CHRIS [id number] Interpreted by: GEORGES SANTOS MD Electronically signed by: GEORGES SANTOS MD 12/03/22931 Diagonstic Imaging: Xray Plain Films/CT/US/NM/MRI: chest Comments [facility] [place] [place] NAME: [facility] REC#: [id number] PT STATUS: REG ER : 1955 PHYSICIAN: JUAN CROWELL MD ADMIT DATE: 12/03/22/ER Draft Date of Exam:12/03/22 CHEST 1 VIEW, AP/PA ONLY EXAM: CHEST 1 VIEW, AP/PA ONLY. INDICATION: Altered mental status. COMPARISON: 06/29/2022. FINDINGS: Normal heart size and central pulmonary vascularity. Prominence of the interstitium is similar to the prior exam. Mild atelectasis or infiltrate in the right lung base. No pleural effusion or pneumothorax. IMPRESSION: 1. Mild atelectasis or infiltrate in the right lung base. 2. Stable prominence of the interstitium which is likely at least partially chronic. A degree of interstitial edema may also be present. Dictated on workstation # [id number] Dict: 12/03/22918 Trans: 12/03/2233 [id number] Interpreted by: GEORGES SANTOS MD Electronically signed by: Departure Impression Primary Impression: Urinary tract infection Qualified Codes: N30.00 - Acute cystitis without hematuria Disposition: HOME, SELF-CARE Condition: Stable Departure-Patient Inst. Decision time for Depature: 10:56 Referrals: CASSANDRA ARCEO MD (PCP/Family) Primary Care Physician Patient Instructions: Urinary Tract Infection, Adult (DC) Add. Discharge Instructions: All discharge instructions reviewed with patient and/or family. Voiced understanding. Continue home medications as previously prescribed. Start antibiotics for urinary tract infection. You were given the first dose of doxycycline 100 mg IV. You are also given Rocephin 1 g IV. You may start the doxycycline tonight and the cefdinir tomorrow morning. Return for worse symptoms, fever, weakness, breathing problems or other concerns as needed. Scripts Doxycycline Hyclate (Doxycycline Hyclate) 100 Mg Tablet 100 MG PO BID, #14 TAB 0 Refills Prov: JUAN CROWELL MD 12/03/22 Cefdinir (Cefdinir) 300 Mg Capsule 300 MG PO BID, #14 CAP 0 Refills Prov: JUAN CROWELL MD 12/03/22 Copy Copies To 1: CASSANDRA ARCEO MD, TIMOTHY D MD Dec 03, 2022 09:24
--- NOTE | 2022-12-03 09:32 | Diagnostic Imaging Report ---
PROCEDURE: CT head without contrast. TECHNIQUE: Multiple contiguous axial images were obtained through the brain without the use of intravenous contrast. Auto Exposure Controls were utilized during the CT exam to meet ALARA standards for radiation dose reduction. INDICATION: Altered mental status. Hypoxia. COMPARISON: 06/29/2022. FINDINGS: Large chronic infarct in the right MCA distribution. Mild to moderate generalized parenchymal volume loss. No CT evidence of acute territorial infarction. No intracranial hemorrhage, mass effect, hydrocephalus, or extra-axial fluid collections. Mucosal thickening in the ethmoid sinuses. The mastoids are clear. No acute osseous findings. IMPRESSION: 1. No acute intracranial CT findings. 2. Large chronic infarct in the anterior right MCA distribution. Dictated by: Dictated on workstation # [id number]
--- NOTE | 2022-12-03 09:33 | Diagnostic Imaging Report ---
EXAM: CHEST 1 VIEW, AP/PA ONLY. INDICATION: Altered mental status. COMPARISON: 06/29/2022. FINDINGS: Normal heart size and central pulmonary vascularity. Prominence of the interstitium is similar to the prior exam. Mild atelectasis or infiltrate in the right lung base. No pleural effusion or pneumothorax. IMPRESSION: 1. Mild atelectasis or infiltrate in the right lung base. 2. Stable prominence of the interstitium which is likely at least partially chronic. A degree of interstitial edema may also be present. Dictated by: Dictated on workstation # [id number]
[2022-12-03] MEDS ORDERED: cefTRIAXone 1 GM PRE-MIX 50 ML IV STA (09:36)
[2022-12-03] MEDS ORDERED: DOXYCYCLINE INJECTION 100 MG in NS (IVPB) 100 ML IV ONE (09:45)
[2022-12-03] MEDS ORDERED: CEFD300C3 PO (10:59)
[2022-12-03] MEDS ORDERED: DOXY100T2 PO (10:59)
[2022-12-03 11:11] VITALS: BP 146/68
== END 2022-12-03 11:20 | disposition home or self-care (01) ==
LOC: EDUNIT# 08:22 → ER 08:23
DX: N39.0 Urinary tract infection, site not specified (principal); Z87.891 Personal history of nicotine dependence
CPT/HCPCS: 36415; 51702; 70450; 71045; 80053; 81000; 83605; 84443; 85025; 86141; 87040; 87077; 87088; 87186

== ENCOUNTER 2022-12-15 11:48 | Observation (INO) | payer MEDICARE, OTHER ==
[~2022-12-15] VITALS: Ht 162.6 cm; Wt 64.6 kg
[~2022-12-15 11:48] MED LIST changes: +CEFD300C3 PO; +DOXY100T2 PO
--- NOTE | 2022-12-15 12:16 | ED General ---
General Chief Complaint: Altered Mental Status Stated Complaint: ALTERED MENTAL STATUS | UTI Nursing Triage Note: Patient to ER via [facility] with c/o altered mental status. Patient was in ER 2 weeks ago for altered mental status and was put on antibiotics for UTI. Patient had a stroke in june of 2022. Patients spouse reports shes had re exsiting UTI's over the last 6 months. Patient states her right leg feels tingly and "feels like there's bees stinging it all over." Source of Information: Patient, Family () Exam Limitations: No Limitations History of Present Illness Date Seen by Provider: Dec 15, 2022 Time Seen by Provider: 12:05 Initial Comments Patient is a 67-year-old female who presents to the emergency room from a local residential where she is receiving rehabilitative therapy post CVA, with her h usband chief complaint "hallucinating" screaming, crying not sleeping during the night and complaining of significant pain to her left lower extremity. Her stroke affected her left side. She is hemiplegic left upper and lower extremity. Her is concerned because her behavior change when she experiences urinary tract infection. He states she has had recurrent severe UTIs since May of last year. He states it seems like she gets antibiotics and is okay for a few days and then the cycle repeats. She was just here on December 03, received antibiotics which she is still currently taking and her behavior is worsening again. No fevers chills, no nausea vomiting or diarrhea. Fair appetite. The patient complains of burning with urination. She is in depends. The states that he does not believe she gets bathed as frequently as she should. On presentation she is not febrile, tachycardic or hypotensive. Alert and oriented. Rates her pain in her left leg/foot at a "9". She describes the pain in her left foot as "bees stinging me". She is an insulin-dependent diabetic. All other review of systems reviewed and negative except as stated. Timing/Duration: Other (constant, waxing and waning in severity) Severity: Severe Associated Systoms: Other (left leg/foot pain; dysuria) Allergies and Home Medications Allergies Coded Allergies: diazepam (Verified Allergy, Intermediate, 02/25/12) milk (Verified Allergy, Intermediate, 02/25/12) morphine (Verified Allergy, Intermediate, 3/31/12) Uncoded Allergies: dimerol (Allergy, Intermediate, 02/25/12) Patient Home Medication List Home Medication List Reviewed: Yes Cefdinir (Cefdinir) 300 Mg Capsule, 300 MG PO BID Prescribed by: JUAN CROWELL on 12/03/22 1059 Diclofenac Potassium (Cataflam) 50 Mg Tablet, 50 MG PO PRN, (Reported) Entered as Reported by: JORDI RICK on 02/25/12 07 Doxycycline Hyclate (Doxycycline Hyclate) 100 Mg Tablet, 100 MG PO BID Prescribed by: JUAN CROWELL on 12/03/22 1059 Hydrocodone Bit/Acetaminophen (Hydrocodone-Apap 5-500 Cap) 1 Each Capsule, 1 EACH PO Q6HR PRN, (Reported) Entered as Reported by: JORDI RICK on 02/25/12700 Pioglitazone Hcl (Actos) 45 Mg Tablet, 45 MG PO DAILY, (Reported) Entered as Reported by: JORDI RICK on 02/25/12700 Tramadol HCl (Ultram) 50 Mg Tablet, 50 MG PO Q6H PRN for PAIN-MODERATE TO SEVERE Prescribed by: CRISTIAN KERR on 12/23/17 1123 [levamire] , (Reported) Entered as Reported by: JORDI RICK on 02/25/12 07 Review of Systems Review of Systems Constitutional: see HPI EENTM: no symptoms reported Respiratory: no symptoms reported Cardiovascular: no symptoms reported Gastrointestinal: no symptoms reported Genitourinary: dysuria, other ("yeast infection") Musculoskeletal: other (leg and foot "pain" and "bees stinging me") Skin: no symptoms reported Psychiatric/Neurological: Anxiety, Emotional Problems, Other ("hallucinating") Past Svbwfah-Utcrxo-Rsiuzw Hx Patient Social History Tobacco Use?: No Substance use?: No Alcohol Use?: No Immunizations Up To Date First/Initial COVID19 Vaccinat: UNKNOWN DATE Second COVID19 Vaccination Jack: UNKNOWN DATE Third COVID19 Vaccination Date: UNKNOWN DATE COVID19 Vaccine Cinetechnician: rosa Seasonal Allergies Seasonal Allergies: No Past Medical History Surgery/Hospitalization HX: STROKE,DIABETES Surgeries: Yes Bladder Surgery, Hysterectomy, Orthopedic Respiratory: No Cardiac: No Neurological: 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 oz. 68.369754xp; 25.00 BMI Method:Stated General Appearance: WD/WN, Anxious Eyes: Bilateral Eye Normal Inspection, Bilateral Eye PERRL, Bilateral Eye EOMI HEENT: PERRL/EOMI Neck: Normal Inspection Respiratory: Lungs Clear, Normal Breath Sounds, No Accessory Muscle Use, No Respiratory Distress Cardiovascular: Regular Rate, Rhythm, Normal Peripheral Pulses Gastrointestinal: Normal Bowel Sounds, Non Tender, Soft Back: Normal Inspection, No Vertebral Tenderness Extremity: Other (flaccid paralysis LUE; able to wiggle toes left foot; 1+ pulses DP left foot; ) Neurologic/Psychiatric: Alert, Oriented x3, Other (emotional; no obvious hallucinations/delusions currently) Skin: Warm/Dry, Erythema (rectum; no open lesions) Progress/Results/Core Measures Suspected Sepsis SIRS Temperature: Pulse: 83 Respiratory Rate: 18 Laboratory Tests 12/15/22 13:00: White Blood Count 7.5 Blood Pressure 121 /75 Mean: 90 Laboratory Tests 12/15/22 13:00: Creatinine 0.67, Platelet Count 291 Results/Orders Lab Results Laboratory Tests Test 12/15/22 12:26 12/15/22 13:00 Range/Units Urine Color YELLOW Urine Clarity CLEAR Urine pH 7.0 5-9 Urine Specific [place] 1.010 L 1.016-1.022 Urine Protein NEGATIVE NEGATIVE Urine Glucose (UA) 3+ H NEGATIVE Urine Ketones NEGATIVE NEGATIVE Urine Nitrite NEGATIVE NEGATIVE Urine Bilirubin NEGATIVE NEGATIVE Urine Urobilinogen 0.2 < = 1.0 MG/DL Urine Leukocyte Esterase 2+ H NEGATIVE Urine RBC (Auto) 2+ H NEGATIVE Urine RBC 5-10 H /HPF Urine WBC 50-100 H /HPF Urine Squamous Epithelial Cells NONE /HPF Urine Crystals NONE /LPF Urine Bacteria LARGE H /HPF Urine Casts NONE /LPF Urine Mucus NEGATIVE /LPF Urine Culture Indicated YES White Blood Count 7.5 4.3-11.0 10^3/uL Red Blood Count 4.82 3.80-5.11 10^6/uL Hemoglobin 13.5 11.5-16.0 g/dL Hematocrit 42 35-52 % Mean Corpuscular Volume 88 80-99 fL Mean Corpuscular Hemoglobin 28 25-34 pg Mean Corpuscular Hemoglobin Concent 32 32-36 g/dL Red Cell Distribution Width 14.8 H 10.0-14.5 % Platelet Count 291 130-400 10^3/uL Mean Platelet Volume 9.9 9.0-12.2 fL Immature Granulocyte % (Auto) 0 % Neutrophils (%) (Auto) 56 42-75 % Lymphocytes (%) (Auto) 26 12-44 % Monocytes (%) (Auto) 14 H 0-12 % Eosinophils (%) (Auto) 4 0-10 % Basophils (%) (Auto) 1 0-10 % Neutrophils # (Auto) 4.2 1.8-7.8 10^3/uL Lymphocytes # (Auto) 1.9 1.0-4.0 10^3/uL Monocytes # (Auto) 1.1 H 0.0-1.0 10^3/uL Eosinophils # (Auto) 0.3 0.0-0.3 10^3/uL Basophils # (Auto) 0.1 0.0-0.1 10^3/uL Immature Granulocyte # (Auto) 0.0 0.0-0.1 10^3/uL Sodium Level 137 135-145 MMOL/L Potassium Level 4.1 3.6-5.0 MMOL/L Chloride Level 101 98-107 MMOL/L Carbon Dioxide Level 26 21-32 MMOL/L Anion Gap 10 5-14 MMOL/L Blood Urea Nitrogen 8 7-18 MG/DL Creatinine 0.67 0.60-1.30 MG/DL Estimat Glomerular Filtration Rate 95 BUN/Creatinine Ratio 12 Glucose Level 64 L 70-105 MG/DL Calcium Level 9.2 8.5-10.1 MG/DL My Orders Orders - BRIAN ARREDONDO MD Ua Culture If Indicated (12/15/22 12:15) Urine Culture (12/15/22 12:26) Ed Iv/Invasive Line Start (12/15/22 12:47) Cbc With Automated Diff (12/15/22 12:47) Basic Metabolic Panel (12/15/22 12:47) Meropenem (Merrem 500 Mg) (12/15/22 13:00) Medications Given in ED Current Medications Medications Dose Ordered Sig/Britni Route Start Time Stop Time Status Last Admin Dose Admin Meropenem 500 mg/ Sodium Chloride 100 ml @ 200 mls/hr ONCE ONCE IV 12/15/22 13:00 12/15/22 13:29 DC 12/15/22 13:19 200 MLS/HR Vital Signs/I&O 12/15/22 11:54 Temp 36.2 Pulse 83 Resp 18 B/P (MAP) 121/75 (90) Pulse Ox 93 O2 Delivery Room Air Capillary Refill : Less Than 3 Seconds Blood Pressure Mean: 90 Progress Note #1: Time: 12:57 Progress Note Has been concerned about repeated urinary tract infections since May of this last year. He states she is always on antibiotics. Review of the medical recor d reveals that the patient had UA performed on December 03, was placed on doxycycline and cefdinir. Blood culture showed E. coli valerio resistant. Only sensitivities to minocycline, gentamicin and meropenem. She is ESBL positive. According to residential staff and report to the ED the patient is still currently on doxycycline. Vital signs are stable at this time. She is afebrile, not tachycardic not hypotensive, no clinical findings concerning for sepsis. Exam is reassuring, no abdominal tenderness, distention. Will go ahead and repeat baseline labs and discuss with hospitalist, Progress Note #2: Time: 13:55 Progress Note case discussed with Dr Aragon on for the hospitalist service, agreeable to admission. Meropenam appropriate. Will likely put PICC in and treat outpatient with ertapenam for 7 d total. Patient is stable for medical floor. Findings and plan of care discussed with the and he is agreeable. Patient does NOT have any concerning findings for sepsis. Departure Communication (Admissions) Time/Spoke to Admitting Phy: 13:[address] Aragon Impression Primary Impression: UTI due to extended-spectrum beta lactamase (ESBL) producing Escherichia coli Disposition: ADMITTED INPATIENT Condition: Stable Admissions Decision to Admit Reason: Admit from ER (General) Decision to Admit/Date: Dec 15, 2022 Time/Decision to Admit Time: 13:57 Departure-Patient Inst. Referrals: CASSANDRA JACKSON MD (PCP/Family) Primary Care Physician Copy Copies To 1: CASSANDRA JACKSON MD, KATHRYN M MD Dec 15, 2022 12:16
[2022-12-15 12:32] LABS: BILIRUBIN,URINE NEGATIVE (NEGATIVE); CLARITY,URINE CLEAR; COLOR,URINE YELLOW; GLUCOSE, URINE (UA) 3+ (NEGATIVE); KETONES,URINE NEGATIVE (NEGATIVE); LEUKOCYTE ESTERASE ,URINE 2+ (NEGATIVE); NITRITE,URINE NEGATIVE (NEGATIVE); PROTEIN,URINE NEGATIVE (NEGATIVE)
[2022-12-15 12:40] LABS: BACTERIA,URINE LARGE /HPF; WBC,URINE 50-100 /HPF
[2022-12-15] MEDS ORDERED: MEROPENEM 500 MG in NS (IVPB) 100 ML IV ONE (13:00)
[2022-12-15 13:07] LABS: BASOPHILS # (AUTO) 0.1 10^3/uL (0.0-0.1); BASOPHILS % (AUTO) 1 % (0-10); EOSINOPHILS # (AUTO) 0.3 10^3/uL (0.0-0.3); EOSINOPHILS % (AUTO) 4 % (0-10); HEMATOCRIT 42 % (35-52); HEMOGLOBIN 13.5 g/dL (11.5-16.0); LYMPHOCYTES # (AUTO) 1.9 10^3/uL (1.0-4.0); LYMPHOCYTES % (AUTO) 26 % (12-44); MEAN CORPUSCULAR HEMOGLOBIN 28 pg (25-34); MEAN CORPUSCULAR HGB CONC 32 g/dL (32-36); MEAN CORPUSCULAR VOLUME 88 fL (80-99); MEAN PLATELET VOLUME 9.9 fL (9.0-12.2); MONOCYTES # (AUTO) 1.1 10^3/uL (0.0-1.0); MONOCYTES % (AUTO) 14 % (0-12); NEUTROPHILS # (AUTO) 4.2 10^3/uL (1.8-7.8); NEUTROPHILS % (AUTO) 56 % (42-75); PLATELET COUNT 291 10^3/uL (130-400); WHITE BLOOD COUNT 7.5 10^3/uL (4.3-11.0)
[2022-12-15 13:28] LABS: CALCIUM 9.2 MG/DL (8.5-10.1); CREATININE SERUM 0.67 MG/DL (0.60-1.30); POTASSIUM 4.1 MMOL/L (3.6-5.0)
[2022-12-15] MEDS ORDERED: CALCIUM CARBONATE 500 MG (TUMS) TAB.CHEW PO PRN (15:15)
[2022-12-15] MEDS ORDERED: MILK OF MAGNESIA 400 MG/5 ML 30 ML UDC PO PRN (15:15)
[2022-12-15] MEDS ORDERED: ANTACID SUSP 30 ML UDC (MYLANTA) PO PRN (15:15)
[2022-12-15] MEDS ORDERED: LACTULOSE SYRUP 10GM/15ML (ENULOSE) 30ML UDC PO PRN (15:15)
[2022-12-15] MEDS ORDERED: BISACODYL 10 MG SUPP (DULCOLAX) PR PRN (15:15)
[2022-12-15] MEDS ORDERED: MELATONIN 3 MG TABLET PO PRN (15:15)
[2022-12-15] MEDS ORDERED: polyethylene glycoL POWDER 17 GM (MIRALAX) PACK PO PRN (15:15)
[2022-12-15] MEDS ORDERED: ONDANSETRON 4 MG/2 ML (SDV) Z0FRAN IV PRN (15:15)
[2022-12-15] MEDS ORDERED: ACETAMINOPHEN 325 MG TABLET PO PRN ×2 (15:15→19:15)
[2022-12-15] MEDS ORDERED: ONDANSETRON 4 MG (ZOFRAN) ORAL DISSOLVE TAB PO PRN (15:15)
[2022-12-15 15:31] VITALS: BP 137/65
[2022-12-15] MEDS: inSUlin ASPART (NovoLOG) 1 UNIT/0.01 ML (CHARGE PER UNIT) SC SCH ×2 (16:07→21:26)
[2022-12-15] MEDS: ENOXAPARIN 40 MG/0.4 ML (LOVENOX) SYR SC SCH (16:09)
--- NOTE | 2022-12-15 18:26 | History & Physical-Hospitalist ---
History of Present Illness HPI/Chief Complaint Malissa Hernández is a 67 year old female with PMH CVA with residual left sided hemiplegia who presented from [facility] with altered mental status. She reports dysuria and urinary urgency. She denies fevers. She denies back pain. She reports left leg pain which is chronic following her stroke. She was recently treated with antibiotics but her culture was found to have ESBL E coli. Source: patient Exam Limitations: no limitations Date Seen 12/15/22 Time Seen by a Provider: 16:40 Attending Physician Danilo Arceo MD PCP Admitting Physician: Tatyana Tate MD Attending Physician: Tatyana Tate MD Referring Physician Date of Admission Dec 15, 2022 at 13:58 Home Medications & Allergies Home Medications Reviewed patient Home Medication Reconciliation performed by pharmacy medication reconciliations copy room technician and/or nursing. Patients Allergies have been reviewed. Allergies Allergies Coded Allergies diazepam (Verified Allergy, Intermediate, 12/15/22) meperidine (Unverified Allergy, Intermediate, 12/15/22) milk (Verified Allergy, Intermediate, 12/15/22) morphine (Verified Allergy, Intermediate, 12/15/22) Past Tmpqinl-Ynbusj-Gpkvnj Hx Patient Social History Tobacco Use?: No Smoking Status: Never a Smoker Smokeless Tobacco Frequency: Never a User Use of E-Cig and/or Vaping dev: No Substance use?: No Alcohol Use?: No Pt feels they are or have been: No Immunizations Up To Date First/Initial COVID19 Vaccinat: UNKNOWN DATE Second COVID19 Vaccination Jack: UNKNOWN DATE Tetanus Booster (TDap): Unknown Date of Pneumonia Vaccine: Aug 27, 2011 Seasonal Allergies Seasonal Allergies: No Current Status status: No status: No Advance Directives: No Communicates: Verbally Primary Language: Macedonian Preferred Spoken Language: Macedonian Is interpretation needed?: No Sensory deficits: Vision impairment Implanted or Applied Medical D: None Past Medical History Surgeries: Bladder Surgery, Hysterectomy, Orthopedic Stroke FLOOR SPECIALIST History: Hysterectomy Chronic Back Pain Diabetes, Non-Insulin dep Family Medical History No Pertinent Family Hx Review of Systems Constitutional: no symptoms reported Respiratory: no symptoms reported Genitourinary: dysuria, hesitancy Physical Exam Physical Exam Vital Signs Vital Signs - First Documented 12/15/22 11:54 Temp 36.2 Pulse 83 Resp 18 B/P (MAP) 121/75 (90) Pulse Ox 93 O2 Delivery Room Air Capillary Refill : Less Than 3 Seconds Height, Weight, BMI Height: 5'4.00" Weight: 150lbs. oz. 68.325159qe; 24.32 BMI Method:Stated General Appearance: No Apparent Distress, WD/WN HEENT: PERRL/EOMI, Pharynx Normal Respiratory: Lungs Clear, No Respiratory Distress Cardiovascular: Regular Rate, Rhythm, No Murmur Gastrointestinal: Normal Bowel Sounds, Soft Extremity: Normal Inspection, No Pedal Edema Neurologic/Psychiatric: Alert, Normal Mood/Affect Results Results/Procedures Labs Laboratory Tests 12/15/22 13:00 Patient resulted labs reviewed. Assessment/Plan Admission Diagnosis UTI due to ESBL E coli Admission Status: Observation Assessment and Plan ESBL E coli UTI History of CVA with residual deficits Merrem PICC placement Plan for outpatient IV antibiotics Likely discharge back to [facility] tomorrow Diagnosis/Problems Diagnosis/Problems (1) UTI due to extended-spectrum beta lactamase (ESBL) producing Escherichia coli Status: Acute (2) History of CVA with residual deficit Status: Chronic TATYANA TATE MD Dec 15, 2022 18:26
[2022-12-15 20:32] VITALS: BP 144/66
[2022-12-15] MEDS ORDERED: MEROPENEM 1,000 MG in NS (IVPB) 100 ML IV SCH (21:20)
[2022-12-15] MEDS: SENNOSIDES 8.6 MG (SENOKOT) TAB PO SCH (21:25)
[2022-12-15] MEDS: DOCUSATE SODIUM 100 MG (COLACE) CAP PO SCH (21:25)
[2022-12-15] MEDS: MEROPENEM 500 MG/NS 100 ML IVPB IV SCH ×2 (21:26)
[2022-12-15 23:14] VITALS: BP 136/71
[2022-12-16 03:45] VITALS: BP 158/72
[2022-12-16] MEDS: inSUlin ASPART (NovoLOG) 1 UNIT/0.01 ML (CHARGE PER UNIT) SC SCH ×2 (06:02→11:00)
[2022-12-16] MEDS: MEROPENEM 500 MG/NS 100 ML IVPB IV SCH ×4 (06:02→13:48)
[2022-12-16] MEDS: SENNOSIDES 8.6 MG (SENOKOT) TAB PO SCH (08:02)
[2022-12-16] MEDS: DOCUSATE SODIUM 100 MG (COLACE) CAP PO SCH (08:03)
[2022-12-16 08:13] VITALS: BP 138/66
[2022-12-16] MEDS ORDERED: lisINopril 20 MG (PRINIVIL) TABLET PO SCH (09:00)
[2022-12-16] MEDS ORDERED: ERTA1VIA4 IJ (11:35)
[2022-12-16] MEDS ORDERED: LISI20TA26 PO (11:35)
[2022-12-16 12:05] VITALS: BP 146/78
[2022-12-16] MEDS ORDERED: ACET-2267 PO (12:05)
[2022-12-16] MEDS ORDERED: POLY15DR27 OU (12:05)
[2022-12-16] MEDS ORDERED: ASPI-1238 PO (12:05)
[2022-12-16] MEDS ORDERED: LOSA100T57 PO (12:05)
[2022-12-16] MEDS ORDERED: INSU100V6 SQ (12:05)
[2022-12-16] MEDS ORDERED: LIDO700A45 TOP (12:05)
[2022-12-16] MEDS ORDERED: DOCU100C37 PO (12:05)
[2022-12-16] MEDS ORDERED: CALC500T7 PO (12:05)
[2022-12-16] MEDS ORDERED: INSU100V16 SC (12:05)
[2022-12-16] MEDS ORDERED: BACL20TA PO (12:05)
[2022-12-16] MEDS ORDERED: MAGN250T31 PO (12:05)
[2022-12-16] MEDS ORDERED: GABA300C PO (12:05)
[2022-12-16] MEDS ORDERED: NORT50CA PO (12:05)
[2022-12-16] MEDS ORDERED: BISA10SU8 RC (12:05)
[2022-12-16] MEDS ORDERED: METH1ADH15 TP (12:05)
[2022-12-16] MEDS ORDERED: DICL100G13 TOP (12:05)
[2022-12-16] MEDS ORDERED: FLUT9.9S NSEACH (12:05)
[2022-12-16] MEDS ORDERED: EMPA25TA PO (12:05)
[2022-12-16] MEDS ORDERED: ATOR80TA76 PO (12:05)
[2022-12-16] MEDS ORDERED: GABA800T10 PO (12:05)
[2022-12-16] MEDS ORDERED: GABA-486 PO (12:05)
[2022-12-16] MEDS ORDERED: SNN187T PO (12:05)
[2022-12-16] MEDS ORDERED: ACHD5005 PO (12:05)
[2022-12-16] MEDS ORDERED: DOXY100C5 PO (12:05)
[2022-12-16] MEDS ORDERED: MELA3TAB39 PO (12:05)
[2022-12-16] MEDS ORDERED: AMLO-250 PO (12:09)
[2022-12-16] MEDS ORDERED: ERTA1VIA4 IV (13:03)
[2022-12-16] MEDS: ENOXAPARIN 40 MG/0.4 ML (LOVENOX) SYR SC SCH (14:32)
--- NOTE | 2022-12-16 15:37 | Discharge Summary ---
Discharge Summary Hospital Course Was the Problem List Reviewed?: Yes Problems/Dx: (1) UTI due to extended-spectrum beta lactamase (ESBL) producing Escherichia coli Status: Acute (2) History of CVA with residual deficit Status: Chronic Hospital Course Date of Admission: Dec 15, 2022 at 13:58 Admission Diagnosis : UTI due to ESBL E coli Family Physician/Provider: Cassandra Jackson MD Date of Discharge: 12/16/22 Discharge Diagnosis: UTI due to ESBL E coli Hospital Course: Malissa Hernández is a 67 year old female with PMH CVA with residual left sided hem iplegia who was admitted with ESBL E coli UTI. She was started on Meropenem. She had a PICC placed and was discharged on Ertapenem. She had issues with HTN and was started on Lisinopril. She was discharged back to [facility] in stable condition. Labs and Pending Lab Test: Laboratory Tests 12/15/22 20:24: Glucometer 159H 12/16/22 05:45: Glucometer 107 12/16/22 11:17: Glucometer 134H Microbiology 12/15/22 Urine Culture - Preliminary, Resulted Probable E.coli Home Meds Active Ertapenem (Ertapenem Sodium) 1 Gram Vial 1 Gm IV DAILY 7 Days Lisinopril 20 Mg Tablet 20 Mg PO DAILY 30 Days Reported Amlodipine Besylate 5 Mg Tablet 5 Mg PO DAILY Hydrocodone-Acetamin 5-325 mg (Hydrocodone/Acetaminophen) 5 Mg-325 Mg Tablet 1 Ea PO Q6H PRN Senna Lax (Sennosides) 8.6 Mg Tablet 17.2 Mg PO HS TAKES 2 (8.5MG) TABS Artificial Tears 1.4 % Soln 1 Drop OU Q4H PRN Lidocaine 5% Patch (Lidocaine) 5 % Adh..patch 1 Patch TOP DAILY Novolog (Insulin Aspart) 100 Unit/Ml Susp 6 Units SC TID Docusate Sodium 100 Mg Capsule 100 Mg PO BID Diclofenac Sodium 1 % Gel..gram. 4 Gm TOP TID PRN Tums (Calcium Carbonate) 200 Mg Calcium (500 Mg) Tab.chew 200 Mg PO Q6H PRN Bisacodyl 10 Mg Supp.rect 10 Mg RC DAILY PRN Tylenol Extra Strength (Acetaminophen) 500 Mg Tablet 500 Mg PO BID PRN Losartan Potassium 100 Mg Tablet 100 Mg PO DAILY Jardiance (Empagliflozin) 25 Mg Tablet 25 Mg PO DAILY Lantus (Insulin Glargine,Hum.rec.anlog) 100 Unit/Ml Vial 18 Unit SQ HS Flonase Allergy Relief (Fluticasone Propionate) 50 Mcg/Actuation [place].susp 1 [place] NSEACH BID 1 SPRAY EACH NARE DAILY Atorvastatin Calcium 80 Mg Tablet 80 Mg PO DAILY Aspirin EC (Aspirin) 81 Mg Tablet.dr 81 Mg PO DAILY Melatonin 3 Mg Tablet 3 Mg PO HS Nortriptyline HCl 50 Mg Capsule 100 Mg PO HS TAKE 2 (50MG) CAPS Salonpas Patch (Methyl Salicylate/Menthol) 10 %-3 % Adh..patch 1 Each TP DAILY PRN FOR NECK PAIN Neurontin (Gabapentin) 300 Mg Capsule 300 Mg PO DAILY Gabapentin 800 Mg Tablet 800 Mg PO HS TAKES 100MG +800MG TOGETHER TO EQUAL 900MG Gabapentin 100 Mg Capsule 100 Mg PO HS TAKES 100MG +800MG TOGETHER TO EQUAL 900MG Magnesium 250 Mg Tablet 500 Mg PO HS Baclofen 20 Mg Tablet 20 Mg PO TID Assessment/Pt Instructions See instructions Discharge Planning: >30 minutes discharge planning Discharge Instructions Discharge Diet: No Restrictions Activity as Tolerated: Yes Discharge Physical Examination Vital Signs Vital Signs Date Time Temp Pulse Resp B/P (MAP) Pulse Ox O2 Delivery O2 Flow Rate FiO2 12/16/22 12:05 37.4 112 18 146/78 (100) 91 Room Air General Appearance: No Apparent Distress, Chronically ill Respiratory: Lungs Clear, No Respiratory Distress Cardiovascular: Regular Rate, Rhythm, No Murmur Gastrointestinal: Normal Bowel Sounds, Soft Extremity: Normal Inspection, No Pedal Edema Neurologic/Psychiatric: Alert, Disoriented Allergies: Coded Allergies: diazepam (Verified Allergy, Intermediate, 12/15/22) meperidine (Unverified Allergy, Intermediate, 12/15/22) milk (Verified Allergy, Intermediate, 12/15/22) morphine (Verified Allergy, Intermediate, Hallucinations, 12/15/22) Has had oxycodone it the past. Copy Copies To 1: CASSANDRA JACKSON MD Discharge Summary Date of Admission Dec 15, 2022 at 13:58 Date of Discharge Discharge Date: Dec 16, 2022 Discharge Time: 15:35 Admission Diagnosis UTI due to ESBL E coli Discharge Diagnosis ESBL E coli UTI History of CVA with residual deficits (1) UTI due to extended-spectrum beta lactamase (ESBL) producing Escherichia coli Status: Acute (2) History of CVA with residual deficit Status: Chronic ASUNCION TATE MD Dec 16, 2022 15:37
== END 2022-12-16 11:35 ==
LOC: EDUNIT# 11:48 → ER 11:49 → 4TH 13:58 → UNDOADMOB 13:58 → 4TH 15:38 → UNDODISOB 12-16 11:35
PROVIDERS: ADMIT Internal Medicine; ATTEND Internal Medicine
DX: N39.0 Urinary tract infection, site not specified (principal); B96.29 Other Escherichia coli [E. coli] as the cause of diseases classified elsewhere; I10 Essential (primary) hypertension; I69.354 Hemiplegia and hemiparesis following cerebral infarction affecting left non-dominant side; Z16.12 Extended spectrum beta lactamase (ESBL) resistance
CPT/HCPCS: 36569; 51701; 76937; 80048; 81000; 82947 ×2; 85025; 87077; 87088; 87186; 96372; 96375; 96376 ×2; 99284; C1751; G0378; 36415

== ENCOUNTER → 2023-01-29 | Outpatient (CLI) | payer MEDICARE, OTHER ==
[~2023-01-29] MED LIST changes: +ACET-2267 PO; +ACHD5005 PO; +AMLO-250 PO; +ASPI-1238 PO; +ATOR80TA76 PO; +BACL20TA PO; +BISA10SU8 RC; +CALC500T7 PO; +DICL100G13 TOP; +DOCU100C37 PO; +DOXY100C5 PO; +EMPA25TA PO; +ERTA1VIA4 IJ; +ERTA1VIA4 IV; +FLUT9.9S NSEACH; +GABA-486 PO; +GABA300C PO; +GABA800T10 PO; +INSU100V16 SC; +INSU100V6 SQ; +LIDO700A45 TOP; +LISI20TA26 PO; +LOSA100T57 PO; +MAGN250T31 PO; +MELA3TAB39 PO; +METH1ADH15 TP; +NORT50CA PO; +POLY15DR27 OU; +SNN187T PO
[2023-01-29 13:24] LABS: BILIRUBIN,URINE NEGATIVE (NEGATIVE); CLARITY,URINE SL CLOUDY; COLOR,URINE YELLOW; GLUCOSE, URINE (UA) 3+ (NEGATIVE); KETONES,URINE NEGATIVE (NEGATIVE); LEUKOCYTE ESTERASE ,URINE 2+ (NEGATIVE); NITRITE,URINE POSITIVE (NEGATIVE); PROTEIN,URINE NEGATIVE (NEGATIVE)
[2023-01-29 13:45] LABS: BACTERIA,URINE MODERATE /HPF; SQUAMOUS EPITHELIAL CELL,UR RARE /HPF; WBC,URINE >100 /HPF
== END ==
LOC: CVS 13:10
PROVIDERS: ATTEND Internal Medicine
DX: Z01.89 Encounter for other specified special examinations (principal)
CPT/HCPCS: 81000; 87077; 87088; 87186

== ENCOUNTER 2023-04-17 16:06 | Emergency (ER) | payer MEDICARE, OTHER, MEDICAID ==
--- NOTE | 2023-04-17 16:28 | ED General ---
General Chief Complaint: General Problems/Pain Stated Complaint: ASPIRATION Nursing Triage Note: PT TO RM 7 BY [facility] EMS FROM [facility] WITH C/O POSSIBLE ASPIRATION OVER THE WEEKEND, AND L HIP PAIN FOR UNKNOWN REASON. PT HAS NO COMPLAINTS AT THIS TIME Source of Information: Patient Exam Limitations: No Limitations History of Present Illness Date Seen by Provider: April 17, 2023 Time Seen by Provider: 16:25 Initial Comments Patient is a 68-year-old female who presents to the ED from [facility] for possible aspiration. They are concerned that she may have aspirated on Monday. This was not witnessed. States she is complaining of left-sided rib pain. She states a nurse aide was walking her at the time. She states they got tangled up. She slipped and landed on her left sided ribs. According to nursing staff she appeared more altered. Was sent to the ED by EMS. EMS denies of any change in mentation. Patient denies of any headache, dizziness, visual changes, vomiting or diarrhea. She does report some left-sided rib pain with some mild shortness of breath. Lung sounds clear throughout. She is not tachycardic, hypoxic or febrile. Eating and drinking at home. Denies of any cardiac history. Allergies and Home Medications Allergies Coded Allergies: diazepam (Verified Allergy, Intermediate, 12/15/22) meperidine (Unverified Allergy, Intermediate, 12/15/22) milk (Verified Allergy, Intermediate, 12/15/22) morphine (Verified Allergy, Intermediate, Hallucinations, 12/15/22) Has had oxycodone it the past. Patient Home Medication List Home Medication List Reviewed: Yes Acetaminophen (Tylenol Extra Strength) 500 Mg Tablet, 500 MG PO BID PRN for PAIN-MILD (1-4), (Reported) Entered as Reported by: SOWMYA CLOUD on 12/16/22 1205 Amlodipine Besylate (Amlodipine Besylate) 5 Mg Tablet, 5 MG PO DAILY, (Reported) Entered as Reported by: SOWMYA CLOUD on 12/16/22 1209 Amoxicillin/Potassium Clav (Amox Tr-K Clv 875-125 mg Tab) 875 Mg-125 Mg Tablet, 1 EACH PO BID Prescribed by: ALETHEA DALE on 04/17/23 1831 Artificial Tears (Artificial Tears) 1.4 % Soln, 1 DROP OU Q4H PRN for DRY EYES, (Reported) Entered as Reported by: SOWMYA CLOUD on 12/16/22 120 Aspirin (Aspirin EC) 81 Mg Tablet.dr, 81 MG PO DAILY, (Reported) Entered as Reported by: SOWMYA CLOUD on 12/16/22 120 Atorvastatin Calcium (Atorvastatin Calcium) 80 Mg Tablet, 80 MG PO DAILY, (Reported) Entered as Reported by: SOWMYA CLOUD on 12/16/22 120 Azithromycin (Azithromycin) 250 Mg Tablet, 250 MG PO UD Prescribed by: ALETHEA DALE on 04/17/231814 Baclofen (Baclofen) 20 Mg Tablet, 20 MG PO TID, (Reported) Entered as Reported by: SOWMYA CLOUD on 12/16/221204 Bisacodyl (Bisacodyl) 10 Mg Supp.rect, 10 MG RC DAILY PRN for CONSTIPATION-4TH LINE, (Reported) Entered as Reported by: SOWMYA CLOUD on 12/16/22 120 Calcium Carbonate (Tums) 200 Mg Calcium (500 Mg) Tab.chew, 200 MG PO Q6H PRN for ACID REFLUX, (Reported) Entered as Reported by: SOWMYA CLOUD on 12/16/22 120 Diclofenac Sodium (Diclofenac Sodium) 1 % Gel..gram., 4 GM TOP TID PRN for PAIN- BREAKTHROUGH, (Reported) Entered as Reported by: SOWMYA CLOUD on 12/16/221204 Docusate Sodium (Docusate Sodium) 100 Mg Capsule, 100 MG PO BID, (Reported) Entered as Reported by: SOWMYA CLOUD on 12/16/22 120 Empagliflozin (Jardiance) 25 Mg Tablet, 25 MG PO DAILY, (Reported) Entered as Reported by: SOWMYA CLOUD on 12/16/22 120 Ertapenem Sodium (Ertapenem) 1 Gram Vial, 1 GM IV DAILY Prescribed by: ASUNCION TATE on 12/16/22 1303 Fluticasone Propionate (Flonase Allergy Relief) 50 Mcg/Actuation [place].susp, 1 SPRAY NSEACH BID, (Reported) Entered as Reported by: SOWMYA CLOUD on 12/16/22 120 Gabapentin (Gabapentin) 100 Mg Capsule, 100 MG PO HS, (Reported) Entered as Reported by: SOWMYA CLOUD on 12/16/22 1205 Gabapentin (Gabapentin) 800 Mg Tablet, 800 MG PO HS, (Reported) Entered as Reported by: SOWMYA CLOUD on 12/16/22 120 Gabapentin (Neurontin) 300 Mg Capsule, 300 MG PO DAILY, (Reported) Entered as Reported by: SOWMAY CLOUD on 12/16/22 120 Hydrocodone/Acetaminophen (Hydrocodone-Acetamin 5-325 mg) 5 Mg-325 Mg Tablet, 1 EA PO Q6H PRN for PAIN-MODERATE (5-7), (Reported) Entered as Reported by: SOWMYA CLOUD on 12/16/22 120 Insulin Aspart (Novolog) 100 Unit/Ml Susp, 6 UNITS SC TID, (Reported) Entered as Reported by: SOWMYA CLOUD on 12/16/22 120 Insulin Glargine,Hum.rec.anlog (Lantus) 100 Unit/Ml Vial, 18 UNIT SQ HS, (Reported) Entered as Reported by: SOWMYA CLOUD on 12/16/22 120 Lidocaine (Lidocaine 5% Patch) 5 % Adh..patch, 1 PATCH TOP DAILY, (Reported) Entered as Reported by: SOWMYA CLOUD on 12/16/22 120 Lisinopril (Lisinopril) 20 Mg Tablet, 20 MG PO DAILY Prescribed by: ASUNCION TATE on 12/16/22 1135 Losartan Potassium (Losartan Potassium) 100 Mg Tablet, 100 MG PO DAILY, (Repor alexei) Entered as Reported by: SOWMYA CLOUD on 12/16/22 120 Magnesium (Magnesium) 250 Mg Tablet, 500 MG PO HS, (Reported) Entered as Reported by: SOWMYA CLOUD on 12/16/22 120 Melatonin (Melatonin) 3 Mg Tablet, 3 MG PO HS, (Reported) Entered as Reported by: SOWMYA CLOUD on 12/16/22 120 Methyl Salicylate/Menthol (Salonpas Patch) 10 %-3 % Adh..patch, 1 EACH TP DAILY PRN for PAIN-BREAKTHROUGH, (Reported) Entered as Reported by: SOWMYA CLOUD on 12/16/22 120 Nortriptyline HCl (Nortriptyline HCl) 50 Mg Capsule, 100 MG PO HS, (Reported) Entered as Reported by: SOWMYA CLOUD on 12/16/22 1205 Sennosides (Senna Lax) 8.6 Mg Tablet, 17.2 MG PO HS, (Reported) Entered as Reported by: SOWMYA CLOUD on 12/16/22 1205 Discontinued Medications Amoxicillin/Potassium Clav (Amox Tr-K Clv 875-125 mg Tab) 875 Mg-125 Mg Tablet, 1 EACH PO BID Prescribed by: ALETHEA DALE on 04/17/23 1815 Review of Systems Review of Systems Constitutional: No chills, No diaphoresis, No fever, No malaise, No weakness EENTM: No ear discharge, No blurred vision, No double vision Respiratory: No cough, No dyspnea on exertion; other (Left-sided rib) Cardiovascular: No chest pain, No edema Gastrointestinal: No abdominal pain, No diarrhea, No nausea, No vomiting Genitourinary: No decreased output, No discharge Musculoskeletal: No back pain, No joint pain, No joint swelling, No muscle pain Skin: No change in color, No change in hair/nails All Other Systems Reviewed Negative Unless Noted: Yes Past Axqdmjo-Qgprag-Tpulwc Hx Patient Social History Tobacco Use?: No Smoking Status: Former Smoker Substance use?: No Alcohol Use?: No Pt feels they are or have been: No Immunizations Up To Date First/Initial COVID19 Vaccinat: UNKNOWN DATE Second COVID19 Vaccination Jack: UNKNOWN DATE Third COVID19 Vaccination Date: UNKNOWN DATE Seasonal Allergies Seasonal Allergies: No Past Medical History Surgery/Hospitalization HX: STROKE,DIABETES Surgeries: Yes Bladder Surgery, Hysterectomy, Orthopedic Respiratory: No Cardiac: No Neurological: No Stroke 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 oz. 68.026170ds; 24.43 BMI Method:Stated General Appearance: No Apparent Distress, WD/WN Eyes: Bilateral Eye Normal Inspection, Bilateral Eye PERRL, Bilateral Eye EOMI HEENT: PERRL/EOMI, TMs Normal, Normal ENT Inspection, Pharynx Normal Neck: Full Range of Motion, Normal Inspection, Non Tender, Supple Respiratory: Lungs Clear, Normal Breath Sounds, No Accessory Muscle Use, No Respiratory Distress, Other (Left-sided rib tenderness. No bruising or swelling.) Cardiovascular: Regular Rate, Rhythm, No Edema, No Gallop, No JVD, No Murmur Gastrointestinal: Normal Bowel Sounds, No Organomegaly, No Pulsatile Mass, Non Tender Extremity: Normal Inspection, Other (Left upper arm and left lower extremity weakness. ) Neurologic/Psychiatric: Alert, Oriented x3, Other (Left-sided paralysis.) Progress/Results/Core Measures Suspected Sepsis SIRS Temperature: Pulse: 73 Respiratory Rate: 18 Laboratory Tests 04/17/23 16:30: White Blood Count 8.5 Blood Pressure 98 /56 Mean: 70 Laboratory Tests 04/17/23 16:30: Creatinine 1.02, Platelet Count 233, Total Bilirubin 0.4 Results/Orders Lab Results Laboratory Tests Test 04/17/23 16:30 04/17/23 17:30 Range/Units White Blood Count 8.5 4.3-11.0 10^3/uL Red Blood Count 3.96 3.80-5.11 10^6/uL Hemoglobin 11.6 11.5-16.0 g/dL Hematocrit 36 35-52 % Mean Corpuscular Volume 91 80-99 fL Mean Corpuscular Hemoglobin 29 25-34 pg Mean Corpuscular Hemoglobin Concent 32 32-36 g/dL Red Cell Distribution Width 15.1 H 10.0-14.5 % Platelet Count 233 130-400 10^3/uL Mean Platelet Volume 10.5 9.0-12.2 fL Immature Granulocyte % (Auto) 1 % Neutrophils (%) (Auto) 54 42-75 % Lymphocytes (%) (Auto) 26 12-44 % Monocytes (%) (Auto) 13 H 0-12 % Eosinophils (%) (Auto) 5 0-10 % Basophils (%) (Auto) 1 0-10 % Neutrophils # (Auto) 4.6 1.8-7.8 10^3/uL Lymphocytes # (Auto) 2.2 1.0-4.0 10^3/uL Monocytes # (Auto) 1.1 H 0.0-1.0 10^3/uL Eosinophils # (Auto) 0.5 H 0.0-0.3 10^3/uL Basophils # (Auto) 0.1 0.0-0.1 10^3/uL Immature Granulocyte # (Auto) 0.1 0.0-0.1 10^3/uL Sodium Level 141 135-145 MMOL/L Potassium Level 4.2 3.6-5.0 MMOL/L Chloride Level 105 98-107 MMOL/L Carbon Dioxide Level 29 21-32 MMOL/L Anion Gap 7 5-14 MMOL/L Blood Urea Nitrogen 23 H 7-18 MG/DL Creatinine 1.02 0.60-1.30 MG/DL Estimat Glomerular Filtration Rate 59 BUN/Creatinine Ratio 23 Glucose Level 122 H 70-105 MG/DL Calcium Level 8.9 8.5-10.1 MG/DL Corrected Calcium 9.2 8.5-10.1 MG/DL Total Bilirubin 0.4 0.1-1.0 MG/DL Aspartate Amino Transf (AST/SGOT) 21 5-34 U/L Alanine Aminotransferase (ALT/SGPT) 19 0-55 U/L Alkaline Phosphatase 61 40-136 U/L Troponin I < 0.028 <0.028 NG/ML B-Type Natriuretic Peptide 106.5 H <100.0 PG/ML Total Protein 6.4 6.4-8.2 GM/DL Albumin 3.6 3.2-4.5 GM/DL Urine Color YELLOW Urine Clarity SL CLOUDY Urine pH 6.5 5-9 Urine Specific [place] <=1.005 1.016-1.022 Urine Protein NEGATIVE NEGATIVE Urine Glucose (UA) NEGATIVE NEGATIVE Urine Ketones NEGATIVE NEGATIVE Urine Nitrite NEGATIVE NEGATIVE Urine Bilirubin NEGATIVE NEGATIVE Urine Urobilinogen 0.2 < = 1.0 MG/DL Urine Leukocyte Esterase NEGATIVE NEGATIVE Urine RBC (Auto) NEGATIVE NEGATIVE Urine RBC NONE /HPF Urine WBC NONE /HPF Urine Crystals NONE /LPF Urine Bacteria NEGATIVE /HPF Urine Casts NONE /LPF Urine Mucus NEGATIVE /LPF Urine Culture Indicated NO My Orders Orders - GAETANO MULTANI PA Chest 1 View, Ap/Pa Only (04/17/23 16:15) Ua Culture If Indicated (04/17/23 16:15) Cbc With Automated Diff (04/17/23 16:15) Comprehensive Metabolic Panel (04/17/23 16:15) Ekg Tracing (04/17/23 16:15) Troponin I [place] (04/17/23 16:15) Bnp [place] (04/17/23 16:15) Vital Signs/I&O 04/17/23 04/17/23 16:15 18:32 Temp 35.9 35.9 Pulse 73 68 Resp 18 18 B/P (MAP) 98/56 (70) 147/61 Pulse Ox 94 95 O2 Delivery Room Air Room Air Capillary Refill : Blood Pressure Mean: 70 ECG Comment Sinus rhythm, possible left atrial lodgment, incomplete right bundle branch block, 71 bpm, QRS duration 103 MS, QTc 427 MS Departure Communication (PCP) Patient came from [facility]. History of stroke with left-sided deficits. Patient was sent to the ED concern for aspiration 2 days ago. This was unwitnessed. According to staff this morning that they noted her oxygen dropping down into the lower 90s. After discussing with a nurse later in the day they state her oxygen was in the mid 90s. They were concerned this morning that she was slightly confused. According to EMS who brought patient to the ED, she is at her normal baseline. Reviewed previous ER visits, H&P, lab test. Differential diagnosis of aspiration pneumonia, electrolyte abnormality, UTI. Patient only complaint is left-sided rib pain. She states she slid down 2 days ago preventing a fall. She hit the floor the left side of her rib. Denies hitting her head or loss of consciousness. Not on blood thinners. On exam no swelling, erythema or bruising. No crepitus. Lung sounds clear bilateral. Due to complaint, CBC, CMP, chest x-ray, EKG, troponin and BNP was ordered. CBC, chemistry grossly unremarkable. Normal troponin. BNP 109. Chest x-ray concerning for potential right lower lobe pneumonia. No evidence of pneumothorax or obvious fracture. She denies of any specific cough but did report some shortness of breath. Patient's pain is on the left side and appears to be more musculoskeletal secondary to the fall. Potential developing pneumonia if she did aspirate on the right. Unclear if patient did aspirate. Will discharge with azithromycin and Augmentin. Recommend recheck with x-ray in 2 to 3 days for further evaluation. Anti-inflammatories for pain. Spirometer. if any worsening symptoms such as developing shortness of breath, oxygen below 92 percent she will need to return back. to ED. patient vital signs stable. Afebrile. Impression Primary Impression: Pneumonia Disposition: HOME, SELF-CARE Condition: Stable Departure-Patient Inst. Decision time for Depature: 18:12 Referrals: CASSANDRA JACKSON MD (PCP/Family) Primary Care Physician Patient Instructions: Pneumonia, Adult ED Add. Discharge Instructions: Recommend following up with primary care physician for further evaluation All discharge instructions reviewed with patient and/or family. Voiced understanding. Scripts Amoxicillin/Potassium Clav (Amox Tr-K Clv 875-125 mg Tab) 875 Mg-125 Mg Tablet 1 EACH PO BID for 7 Days, #14 TAB Prov: GAETANO MULTANI 04/17/23 Azithromycin (Azithromycin) 250 Mg Tablet 250 MG PO UD, #6 TAB TAKE 2 TABLETS ON DAY ONE THEN TAKE 1 TABLET DAILY FOR FOUR MORE DAYS Prov: GAETANO MULTANI 04/17/23 GAETANO MULTANI April 17, 2023 16:28
[2023-04-17 16:45] LABS: BASOPHILS # (AUTO) 0.1 10^3/uL (0.0-0.1); BASOPHILS % (AUTO) 1 % (0-10); EOSINOPHILS # (AUTO) 0.5 10^3/uL (0.0-0.3); EOSINOPHILS % (AUTO) 5 % (0-10); HEMATOCRIT 36 % (35-52); HEMOGLOBIN 11.6 g/dL (11.5-16.0); LYMPHOCYTES # (AUTO) 2.2 10^3/uL (1.0-4.0); LYMPHOCYTES % (AUTO) 26 % (12-44); MEAN CORPUSCULAR HEMOGLOBIN 29 pg (25-34); MEAN CORPUSCULAR HGB CONC 32 g/dL (32-36); MEAN CORPUSCULAR VOLUME 91 fL (80-99); MEAN PLATELET VOLUME 10.5 fL (9.0-12.2); MONOCYTES # (AUTO) 1.1 10^3/uL (0.0-1.0); MONOCYTES % (AUTO) 13 % (0-12); NEUTROPHILS # (AUTO) 4.6 10^3/uL (1.8-7.8); NEUTROPHILS % (AUTO) 54 % (42-75); PLATELET COUNT 233 10^3/uL (130-400); WHITE BLOOD COUNT 8.5 10^3/uL (4.3-11.0)
[2023-04-17 16:54] LABS: ALANINE AMINOTRANSFERASE 19 U/L (0-55); ALBUMIN 3.6 GM/DL (3.2-4.5); ALKALINE PHOSPHATASE 61 U/L (40-136); BILIRUBIN,TOTAL 0.4 MG/DL (0.1-1.0); BUN/CREATININE RATIO 23; CALCIUM 8.9 MG/DL (8.5-10.1); CARBON DIOXIDE 29 MMOL/L (21-32); CHLORIDE 105 MMOL/L (98-107); CREATININE SERUM 1.02 MG/DL (0.60-1.30); GFR ESTIMATED 59; GLUCOSE 122 MG/DL (70-105); POTASSIUM 4.2 MMOL/L (3.6-5.0); SODIUM 141 MMOL/L (135-145); TOTAL PROTEIN 6.4 GM/DL (6.4-8.2)
--- NOTE | 2023-04-17 16:54 | Diagnostic Imaging Report ---
INDICATION: Cough. TECHNIQUE: Frontal chest obtained at 04:52 p.m. and compared to 12/03/2022. FINDINGS: The heart is mildly enlarged. There is central vascular congestion. There is some patchy infiltrate in the right base. There is no pneumothorax or pleural fluid. IMPRESSION: Cardiomegaly with central vascular congestion. There is some patchy infiltrate in the right lung base, pneumonia not excluded. Follow-up is recommended. Dictated by: Dictated on workstation # [id number]
[2023-04-17 17:46] LABS: BILIRUBIN,URINE NEGATIVE (NEGATIVE); CLARITY,URINE SL CLOUDY; COLOR,URINE YELLOW; GLUCOSE, URINE (UA) NEGATIVE (NEGATIVE); KETONES,URINE NEGATIVE (NEGATIVE); LEUKOCYTE ESTERASE ,URINE NEGATIVE (NEGATIVE); NITRITE,URINE NEGATIVE (NEGATIVE); PH,URINE 6.5 (5-9); PROTEIN,URINE NEGATIVE (NEGATIVE)
[2023-04-17 17:55] LABS: BACTERIA,URINE NEGATIVE /HPF
[2023-04-17] MEDS ORDERED: AZIT250T12 PO (18:15)
[2023-04-17] MEDS ORDERED: AMOX1TAB12 PO ×2 (18:15→18:31)
[2023-04-17 18:32] VITALS: BP 147/61
== END 2023-04-17 19:06 | disposition home or self-care (01) ==
LOC: EDUNIT# 16:06 → ER 16:08
DX: J18.9 Pneumonia, unspecified organism (principal); I69.354 Hemiplegia and hemiparesis following cerebral infarction affecting left non-dominant side; Z87.891 Personal history of nicotine dependence; W01.198A Fall on same level from slipping, tripping and stumbling with subsequent striking against other object, initial encounter
CPT/HCPCS: 36415; 71045; 80053; 81000; 83880; 84484; 85025; 93005

== ENCOUNTER 2023-05-02 11:02 | Emergency (ER) | payer MEDICARE, OTHER, MEDICAID ==
[~2023-05-02] VITALS: Ht 162 cm; Wt 75.2 kg
[~2023-05-02 11:02] MED LIST changes: +AMOX1TAB12 PO; +AZIT250T12 PO
[2023-05-02] MEDS ORDERED: NS IV 1000 ML 1,000 ML IV STA ×2 (11:11→11:14)
[2023-05-02 11:26] LABS: BASOPHILS # (AUTO) 0.1 10^3/uL (0.0-0.1); BASOPHILS % (AUTO) 1 % (0-10); EOSINOPHILS # (AUTO) 0.4 10^3/uL (0.0-0.3); EOSINOPHILS % (AUTO) 5 % (0-10); HEMATOCRIT 38 % (35-52); HEMOGLOBIN 12.1 g/dL (11.5-16.0); LYMPHOCYTES # (AUTO) 1.6 10^3/uL (1.0-4.0); LYMPHOCYTES % (AUTO) 21 % (12-44); MEAN CORPUSCULAR HEMOGLOBIN 30 pg (25-34); MEAN CORPUSCULAR HGB CONC 32 g/dL (32-36); MEAN CORPUSCULAR VOLUME 93 fL (80-99); MEAN PLATELET VOLUME 10.4 fL (9.0-12.2); MONOCYTES # (AUTO) 0.7 10^3/uL (0.0-1.0); MONOCYTES % (AUTO) 10 % (0-12); NEUTROPHILS # (AUTO) 4.8 10^3/uL (1.8-7.8); NEUTROPHILS % (AUTO) 63 % (42-75); PLATELET COUNT 255 10^3/uL (130-400); WHITE BLOOD COUNT 7.5 10^3/uL (4.3-11.0)
--- NOTE | 2023-05-02 11:32 | ED General ---
General Chief Complaint: Dizziness/Syncope Stated Complaint: SYNCOPE Nursing Triage Note: PT PRESENTS TO ED VIA EM FROM [facility] FOR COMPLAINTS OF NEAR SYNCOPAL EPISODE WHILE BEING ASSISSTED ON THE COMMODE. RETIREMENT STAFF REPORTS PT INITIAL BP WAS IN THE 80'S SYSTOLICALLY. Source of Information: Patient Exam Limitations: No Limitations History of Present Illness Date Seen by Provider: May 02, 2023 Time Seen by Provider: 11:32 Initial Comments Patient is a 68-year-old female with a history of stroke with left-sided deficits who presents to ED from [facility] for a near syncopal episode. She was getting out of the shower. Staff was assisting her. She became limp for a few seconds. They assisted her down. She cannot recall this episode. She states she has been having some intermittent dizzy spells when she stands. They noted her blood pressure being in the 80s systolic. According to EMS patient blood pressure was 90/47. She had a soft blood pressure on arrival 78/47. Patient reports daily headache. She has no chest pain, cough, shortness of breath, abdominal pain, vomiting, diarrhea or dysuria. Chronic Casillas catheter secondary to urinary retention. Chronic left-sided deficits. According to at bedside she appears her normal self at this time. She denies any visual loss, worsening head pain, neck pain, fever, chills, body aches, cough, dysuria, hematuria Allergies and Home Medications Allergies Coded Allergies: diazepam (Verified Allergy, Intermediate, 12/15/22) meperidine (Unverified Allergy, Intermediate, 12/15/22) milk (Verified Allergy, Intermediate, 12/15/22) morphine (Verified Allergy, Intermediate, Hallucinations, 12/15/22) Has had oxycodone it the past. Patient Home Medication List Home Medication List Reviewed: Yes Acetaminophen (Tylenol Extra Strength) 500 Mg Tablet, 500 MG PO BID PRN for PAIN-MILD (1-4), (Reported) Entered as Reported by: SOWMYA CLOUD on 12/16/22 1205 Amlodipine Besylate (Amlodipine Besylate) 5 Mg Tablet, 5 MG PO DAILY, (Reported) Entered as Reported by: SOWMYA CLOUD on 12/16/22 1209 Amoxicillin/Potassium Clav (Amox Tr-K Clv 875-125 mg Tab) 875 Mg-125 Mg Tablet, 1 EACH PO BID Prescribed by: ALETHEA DALE on 04/17/23 183 Artificial Tears (Artificial Tears) 1.4 % Soln, 1 DROP OU Q4H PRN for DRY EYES, (Reported) Entered as Reported by: SOWMYA CLOUD on 12/16/22 120 Aspirin (Aspirin EC) 81 Mg Tablet.dr, 81 MG PO DAILY, (Reported) Entered as Reported by: SOWMYA CLOUD on 12/16/22 120 Atorvastatin Calcium (Atorvastatin Calcium) 80 Mg Tablet, 80 MG PO DAILY, (Reported) Entered as Reported by: SOWMYA CLOUD on 12/16/22 120 Azithromycin (Azithromycin) 250 Mg Tablet, 250 MG PO UD Prescribed by: ALETHEA DALE on 04/17/231814 Baclofen (Baclofen) 20 Mg Tablet, 20 MG PO TID, (Reported) Entered as Reported by: SOWMYA CLOUD on 12/16/22 120 Bisacodyl (Bisacodyl) 10 Mg Supp.rect, 10 MG RC DAILY PRN for CONSTIPATION-4TH LINE, (Reported) Entered as Reported by: SOWMYA CLOUD on 12/16/22 120 Calcium Carbonate (Tums) 200 Mg Calcium (500 Mg) Tab.chew, 200 MG PO Q6H PRN for ACID REFLUX, (Reported) Entered as Reported by: SOWMYA CLOUD on 12/16/22 120 Cephalexin (Cephalexin) 500 Mg Tablet, 500 MG PO TID Prescribed by: ALETHEA DALE on 05/02/23 1400 Diclofenac Sodium (Diclofenac Sodium) 1 % Gel..gram., 4 GM TOP TID PRN for PAIN- BREAKTHROUGH, (Reported) Entered as Reported by: SOWMYA CLOUD on 12/16/22 120 Docusate Sodium (Docusate Sodium) 100 Mg Capsule, 100 MG PO BID, (Reported) Entered as Reported by: SOWMYA CLOUD on 12/16/22 120 Empagliflozin (Jardiance) 25 Mg Tablet, 25 MG PO DAILY, (Reported) Entered as Reported by: SOWMYA CLOUD on 12/16/22 120 Ertapenem Sodium (Ertapenem) 1 Gram Vial, 1 GM IV DAILY Prescribed by: ASUNCION TATE on 12/16/22 1303 Fluticasone Propionate (Flonase Allergy Relief) 50 Mcg/Actuation Clark.susp, 1 SPRAY NSEACH BID, (Reported) Entered as Reported by: SOWMYA CLOUD on 12/16/22 120 Gabapentin (Gabapentin) 100 Mg Capsule, 100 MG PO HS, (Reported) Entered as Reported by: SOWMYA CLOUD on 12/16/22 120 Gabapentin (Gabapentin) 800 Mg Tablet, 800 MG PO HS, (Reported) Entered as Reported by: SOWMYA CLOUD on 12/16/221204 Gabapentin (Neurontin) 300 Mg Capsule, 300 MG PO DAILY, (Reported) Entered as Reported by: SOWMYA CLOUD on 12/16/22 120 Hydrocodone/Acetaminophen (Hydrocodone-Acetamin 5-325 mg) 5 Mg-325 Mg Tablet, 1 EA PO Q6H PRN for PAIN-MODERATE (5-7), (Reported) Entered as Reported by: SOWMYA CLOUD on 12/16/22 120 Insulin Aspart (Novolog) 100 Unit/Ml Susp, 6 UNITS SC TID, (Reported) Entered as Reported by: SOWMYA CLOUD on 12/16/221204 Insulin Glargine,Hum.rec.anlog (Lantus) 100 Unit/Ml Vial, 18 UNIT SQ HS, (Re ported) Entered as Reported by: SOWMYA CLOUD on 12/16/221204 Lidocaine (Lidocaine 5% Patch) 5 % Adh..patch, 1 PATCH TOP DAILY, (Reported) Entered as Reported by: SOWMYA CLOUD on 12/16/22 120 Lisinopril (Lisinopril) 20 Mg Tablet, 20 MG PO DAILY Prescribed by: ASUNCION TATE on 12/16/22 1135 Losartan Potassium (Losartan Potassium) 100 Mg Tablet, 100 MG PO DAILY, (Reported) Entered as Reported by: SOWMYA CLOUD on 12/16/22 120 Magnesium (Magnesium) 250 Mg Tablet, 500 MG PO HS, (Reported) Entered as Reported by: SOWMYA CLOUD on 12/16/22 120 Melatonin (Melatonin) 3 Mg Tablet, 3 MG PO HS, (Reported) Entered as Reported by: SOWMYA CLOUD on 12/16/22 120 Methyl Salicylate/Menthol (Salonpas Patch) 10 %-3 % Adh..patch, 1 EACH TP DAILY PRN for PAIN-BREAKTHROUGH, (Reported) Entered as Reported by: SOWMYA CLOUD on 12/16/22 1205 Nortriptyline HCl (Nortriptyline HCl) 50 Mg Capsule, 100 MG PO HS, (Reported) Entered as Reported by: SOWMYA CLOUD on 12/16/22 1205 Sennosides (Senna Lax) 8.6 Mg Tablet, 17.2 MG PO HS, (Reported) Entered as Reported by: SOWMYA CLOUD on 12/16/22 1205 Review of Systems Review of Systems Constitutional: No chills, No diaphoresis, No dizziness, No fever EENTM: No ear pain, No blurred vision, No double vision Respiratory: No cough, No dyspnea on exertion Cardiovascular: No chest pain Gastrointestinal: No abdominal pain, No diarrhea, No nausea, No vomiting Genitourinary: No decreased output, No discharge, No dysuria, No frequency Musculoskeletal: No back pain, No joint pain Psychiatric/Neurological: Denies Anxiety, Denies Depressed All Other Systems Reviewed Negative Unless Noted: Yes Past Cqqtylu-Xqaopf-Vcjgrm Hx Patient Social History Tobacco Use?: No Use of E-Cig and/or Vaping Amish: Former User Substance use?: No Alcohol Use?: No Pt feels they are or have been: No Immunizations Up To Date First/Initial COVID19 Vaccinat: UNKNOWN DATE Second COVID19 Vaccination Jack: UNKNOWN DATE Third COVID19 Vaccination Date: UNKNOWN DATE Seasonal Allergies Seasonal Allergies: No Past Medical History Surgery/Hospitalization HX: STROKE- L SIDE PARALYSIS, DIABETES-2, NEUROGENIC HEBERT, HTN, DYSARTHRIA, HYPERLIPIDEMIA Surgeries: Yes Bladder Surgery, Hysterectomy, Orthopedic Respiratory: No Cardiac: No Neurological: No Stroke [employer] History: Hysterectomy Genitourinary: No Gastrointestinal: No Musculoskeletal: Yes Chronic Back Pain Endocrine: Yes Diabetes, Non-Insulin dep HEENT: No Cancer: No Psychosocial: No Integumentary: No Family Medical History No Pertinent Family Hx Physical Exam Vital Signs Vital Signs - First Documented 05/02/23 11:04 Temp 35.2 Pulse 73 Resp 24 B/P (MAP) 78/43 (55) Pulse Ox 93 Capillary Refill : Less Than 3 Seconds Height, Weight, BMI Height: 5'4.00" Weight: 150lbs. oz. 68.773380mj; 28.00 BMI Method:Stated General Appearance: No Apparent Distress, WD/WN Eyes: Bilateral Eye Normal Inspection, Bilateral Eye PERRL, Bilateral Eye EOMI HEENT: PERRL/EOMI, TMs Normal, Normal ENT Inspection, Pharynx Normal Neck: Full Range of Motion, Normal Inspection, Non Tender, Supple Respiratory: Chest Non Tender, Lungs Clear, Normal Breath Sounds, No Accessory Muscle Use, No Respiratory Distress Cardiovascular: Regular Rate, Rhythm, No Edema, No Gallop Gastrointestinal: Normal Bowel Sounds, No Organomegaly, No Pulsatile Mass, Non Tender Back: Normal Inspection, No CVA Tenderness, No Vertebral Tenderness Extremity: Other (Left arm paralysis, left leg paralysis. Strength right hand, right foot 5-5.) Neurologic/Psychiatric: Alert, Oriented x3 Skin: Normal Color, Warm/Dry Progress/Results/Core Measures Suspected Sepsis SIRS Temperature: Pulse: 73 Respiratory Rate: 24 Laboratory Tests 05/02/23 11:10: White Blood Count 7.5 Blood Pressure 78 /43 Mean: 55 Laboratory Tests 05/02/23 11:10: Creatinine 0.78, Platelet Count 255, Total Bilirubin 0.5 Results/Orders Lab Results Laboratory Tests Test 05/02/23 11:10 05/02/23 12:23 05/02/23 12:24 05/02/23 13:51 Range/Units White Blood Count 7.5 4.3-11.0 10^3/uL Red Blood Count 4.08 3.80-5.11 10^6/uL Hemoglobin 12.1 11.5-16.0 g/dL Hematocrit 38 35-52 % Mean Corpuscular Volume 93 80-99 fL Mean Corpuscular Hemoglobin 30 25-34 pg Mean Corpuscular Hemoglobin Concent 32 32-36 g/dL Red Cell Distribution Width 14.4 10.0-14.5 % Platelet Count 255 130-400 10^3/uL Mean Platelet Volume 10.4 9.0-12.2 fL Immature Granulocyte % (Auto) 0 % Neutrophils (%) (Auto) 63 42-75 % Lymphocytes (%) (Auto) 21 12-44 % Monocytes (%) (Auto) 10 0-12 % Eosinophils (%) (Auto) 5 0-10 % Basophils (%) (Auto) 1 0-10 % Neutrophils # (Auto) 4.8 1.8-7.8 10^3/uL Lymphocytes # (Auto) 1.6 1.0-4.0 10^3/uL Monocytes # (Auto) 0.7 0.0-1.0 10^3/uL Eosinophils # (Auto) 0.4 H 0.0-0.3 10^3/uL Basophils # (Auto) 0.1 0.0-0.1 10^3/uL Immature Granulocyte # (Auto) 0.0 0.0-0.1 10^3/uL Sodium Level 140 135-145 MMOL/L Potassium Level 4.5 3.6-5.0 MMOL/L Chloride Level 105 98-107 MMOL/L Carbon Dioxide Level 25 21-32 MMOL/L Anion Gap 10 5-14 MMOL/L Blood Urea Nitrogen 13 7-18 MG/DL Creatinine 0.78 0.60-1.30 MG/DL Estimat Glomerular Filtration Rate 82 BUN/Creatinine Ratio 17 Glucose Level 61 L 70-105 MG/DL Calcium Level 9.4 8.5-10.1 MG/DL Corrected Calcium 9.6 8.5-10.1 MG/DL Magnesium Level 2.1 1.6-2.4 MG/DL Total Bilirubin 0.5 0.1-1.0 MG/DL Aspartate Amino Transf (AST/SGOT) 21 5-34 U/L Alanine Aminotransferase (ALT/SGPT) 24 0-55 U/L Alkaline Phosphatase 65 40-136 U/L Troponin I < 0.028 <0.028 NG/ML B-Type Natriuretic Peptide 87.6 <100.0 PG/ML Total Protein 6.8 6.4-8.2 GM/DL Albumin 3.7 3.2-4.5 GM/DL Glucometer 86 126 H 70-110 MG/DL Urine Color YELLOW Urine Clarity CLEAR Urine pH 7.0 5-9 Urine Specific [place] 1.010 L 1.016-1.022 Urine Protein TRACE H NEGATIVE Urine Glucose (UA) NEGATIVE NEGATIVE Urine Ketones NEGATIVE NEGATIVE Urine Nitrite POSITIVE H NEGATIVE Urine Bilirubin NEGATIVE NEGATIVE Urine Urobilinogen 0.2 < = 1.0 MG/DL Urine Leukocyte Esterase 3+ H NEGATIVE Urine RBC (Auto) TRACE-I H NEGATIVE Urine RBC 0-2 /HPF Urine WBC 25-50 H /HPF Urine Crystals NONE /LPF Urine Bacteria MODERATE H /HPF Urine Casts NONE /LPF Urine Mucus NEGATIVE /LPF Urine Culture Indicated YES My Orders Orders - GAETANO MULTANI PA Cbc With Automated Diff (05/02/23 11:11) Comprehensive Metabolic Panel (05/02/23 11:11) Magnesium (05/02/23 11:11) Troponin I Lilli (05/02/23 11:11) Bnp Lilli (05/02/23 11:11) Chest 1 View, Ap/Pa Only (05/02/23 11:11) Ekg Tracing (05/02/23 11:11) Ct Head Wo (05/02/23 11:11) Ns Iv 1000 Ml (Sodium Chloride 0.9%) (05/02/23 11:11) Ns Iv 1000 Ml (Sodium Chloride 0.9%) (05/02/23 11:14) Ua Culture If Indicated (05/02/23 12:25) Tramadol Tablet (Ultram Tablet) (05/02/23 12:33) Urine Culture (05/02/23 12:24) Vital Signs/I&O 05/02/23 05/02/23 05/02/23 11:04 12:24 14:50 Temp 35.2 Pulse 73 71 75 63 Resp 24 14 B/P (MAP) 78/43 (55) 130/52 (78) 104/45 122/54 (76) Pulse Ox 93 93 Capillary Refill : Less Than 3 Seconds Blood Pressure Mean: 55 ECG Comment Sinus rhythm, possible left atrial lodgment, incomplete right bundle branch block, 72 bpm, QRS duration 105 MS, QTc 423 MS Departure Communication (PCP) Reviewed previous ER visits, H&P, lab testing. Patient presents ED for near syncopal episode and hypotension. Blood pressure on arrival 78/53. She was found to be hypotensive in the 80s systolic at [facility]. Patient with the near syncope episode when she was getting out of the shower. She states she has been feeling dizzy when attempting to stand over the past few days. She does take amlodipine and losartan for blood pressure. She does take NovoLog. She did receive a dose of NovoLog right before she took a shower. She did eat a little this morning. They state her blood sugar was in the 90s at the time of EMS. On arrival Accu-Chek of 61. Patient was started on a liter of fluid. EKG, CBC, CMP, chest x-ray and CT scan of the head was ordered. She has chronic left-sided deficits. Normal mentation. She is able to stand and bear some weight on the left leg but needs assistance. Typically wheelchair-bound. Patient alert and orient x3. CT scan of the head negative for acute abnormality. Chronic findings noted. EKG showed normal sinus rhythm without evidence of ST elevation or depression. Normal cardiac work-up. Chest x-ray cardiomegaly with pulmonary congestion. No evidence of pneumonia. CBC, CMP grossly unremarkable besides blood sugar 61. Patient was given a meal at bedside. Blood sugar improved to 126. She received 1 L of fluid. Blood pressure improved to as high as 130/80. Was able to do modified orthostatics of her lying and sitting. Patient was not able to stand. She denies of any dizziness, visual changes, chest pain, cough, shortness of breath, abdominal pain. No lower extremity swelling. She does have indwelling catheter history of urinary incontinence. Patient urinalysis was positive for nitrites and leukocytes. Contamination versus UTI. History of chronic UTIs. Reviewed previous microbiology showed susceptibility to cephalosporins. Will discharge with Keflex. She is scheduled to follow-up with urology due to her chronic UTIs. Patient blood pressure remained stable. She is currently asymptomatic. Patient will be discharged back to [facility]. Patient syncopal episode appears to be combination of low blood sugar, hypotension. Patient's blood pressure fluctuated between low 100s and 120s. Did have a slight low diastolic in the 50s. Discussed this given a second bolus of fluids but patient was eager to leave. Discussed the importance of staying hydrated. Recommend follow-up PCP in 2 to 3 days for reevaluation. Impression Primary Impression: Syncope Additional Impression: UTI (urinary tract infection) Disposition: HOME, SELF-CARE Condition: Stable Departure-Patient Inst. Decision time for Depature: 13:59 Referrals: CASSANDRA JACKSON MD (PCP/Family) Primary Care Physician Patient Instructions: Syncope (Fainting) (DC) Scripts Cephalexin (Cephalexin) 500 Mg Tablet 500 MG PO TID for 7 Days, #21 TAB Prov: GAETANO MULTANI 05/02/23 GAETANO MULTANI May 02, 2023 11:32
[2023-05-02 11:34] LABS: ALBUMIN 3.7 GM/DL (3.2-4.5); CHLORIDE 105 MMOL/L (98-107); POTASSIUM 4.5 MMOL/L (3.6-5.0); SODIUM 140 MMOL/L (135-145)
[2023-05-02 11:35] LABS: CALCIUM 9.4 MG/DL (8.5-10.1)
[2023-05-02 11:36] LABS: GLUCOSE 61 MG/DL (70-105)
[2023-05-02 11:37] LABS: TOTAL PROTEIN 6.8 GM/DL (6.4-8.2)
[2023-05-02 11:38] LABS: BILIRUBIN,TOTAL 0.5 MG/DL (0.1-1.0); CARBON DIOXIDE 25 MMOL/L (21-32)
[2023-05-02 11:40] LABS: ALKALINE PHOSPHATASE 65 U/L (40-136); CREATININE SERUM 0.78 MG/DL (0.60-1.30); GFR ESTIMATED 82
[2023-05-02 11:41] LABS: BUN/CREATININE RATIO 17
[2023-05-02 11:43] LABS: ALANINE AMINOTRANSFERASE 24 U/L (0-55); MAGNESIUM 2.1 MG/DL (1.6-2.4)
--- NOTE | 2023-05-02 11:58 | Diagnostic Imaging Report ---
PROCEDURE: CT head without contrast. TECHNIQUE: Multiple contiguous axial images were obtained through the brain without the use of intravenous contrast. Auto Exposure Controls were utilized during the CT exam to meet ALARA standards for radiation dose reduction. INDICATION: Near syncope and hypotension. COMPARISON: Exam is compared with head CT 12/03/2022. FINDINGS: A large area of encephalomalacia in the right MCA territory is stable consistent with remote infarct. No acute ischemia is apparent, and there are no findings of focal or generalized cerebral edema. There is no hydrocephalus and no findings of hemorrhage. There are no acute extra-axial fluid collections. The mastoid air cells and middle ear cavities are clear. Orbits, paranasal sinuses, and calvarium are unremarkable. 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 No hemorrhage, edema, or acute appearing abnormalities. Dictated by: Dictated on workstation # [id number]
--- NOTE | 2023-05-02 12:04 | Diagnostic Imaging Report ---
INDICATION: Syncope. TECHNIQUE: Frontal chest obtained at 11:34 a.m. and compared to 04/17/2023. FINDINGS: Heart is mildly enlarged. There is central vascular congestion with borderline edema. There is no consolidation or pneumothorax or pleural fluid. IMPRESSION: Cardiomegaly with mild central vascular congestion and borderline edema. No consolidation or pleural fluid. Dictated by: Dictated on workstation # [id number]
[2023-05-02 12:24] VITALS: BP_SYST 122; BP_SYST 130; BP_DIAS 52; BP_DIAS 54
[2023-05-02 12:34] LABS: BILIRUBIN,URINE NEGATIVE (NEGATIVE); CLARITY,URINE CLEAR; COLOR,URINE YELLOW; GLUCOSE, URINE (UA) NEGATIVE (NEGATIVE); KETONES,URINE NEGATIVE (NEGATIVE); LEUKOCYTE ESTERASE ,URINE 3+ (NEGATIVE); NITRITE,URINE POSITIVE (NEGATIVE); PROTEIN,URINE TRACE (NEGATIVE)
[2023-05-02 12:46] LABS: BACTERIA,URINE MODERATE /HPF; RBC,URINE 0-2 /HPF; WBC,URINE 25-50 /HPF
[2023-05-02] MEDS ORDERED: CEPH500T PO (14:00)
[2023-05-02 14:50] VITALS: BP 104/45
== END 2023-05-02 14:57 | disposition home or self-care (01) ==
LOC: EDUNIT# 11:02 → ER 11:03
DX: R55 Syncope and collapse (principal); N39.0 Urinary tract infection, site not specified; I51.7 Cardiomegaly; G81.94 Hemiplegia, unspecified affecting left nondominant side; I10 Essential (primary) hypertension; I95.9 Hypotension, unspecified; Z79.899 Other long term (current) drug therapy; Z87.891 Personal history of nicotine dependence; Z86.73 Personal history of transient ischemic attack (TIA), and cerebral infarction without residual deficits
CPT/HCPCS: 36415; 70450; 71045; 80053; 81000; 82947; 83735; 83880; 84484; 85025; 87088; 93005

== ENCOUNTER → 2023-05-20 | Outpatient (CLI) | payer MEDICARE, OTHER, MEDICAID ==
[~2023-05-20] MED LIST changes: +CEPH500T PO; -LOSA100T57 PO; +LOSA100T58 PO
[2023-05-20 14:11] LABS: BILIRUBIN,URINE NEGATIVE (NEGATIVE); CLARITY,URINE CLEAR; COLOR,URINE YELLOW; GLUCOSE, URINE (UA) NEGATIVE (NEGATIVE); KETONES,URINE NEGATIVE (NEGATIVE); LEUKOCYTE ESTERASE ,URINE NEGATIVE (NEGATIVE); NITRITE,URINE NEGATIVE (NEGATIVE); PROTEIN,URINE NEGATIVE (NEGATIVE)
[2023-05-20 15:04] LABS: BACTERIA,URINE NEGATIVE /HPF
== END ==
LOC: LABNPT 14:07
PROVIDERS: ATTEND Internal Medicine
DX: Z01.89 Encounter for other specified special examinations (principal)
CPT/HCPCS: 81000

== ENCOUNTER → 2023-08-02 | Outpatient (CLI) | payer MEDICARE, OTHER, MEDICAID ==
[~2023-08-02] MED LIST changes: +SENN-341 PO; -SNN187T PO
[2023-08-02 18:09] LABS: BILIRUBIN,URINE NEGATIVE (NEGATIVE); CLARITY,URINE CLOUDY; COLOR,URINE YELLOW; GLUCOSE, URINE (UA) NEGATIVE (NEGATIVE); KETONES,URINE NEGATIVE (NEGATIVE); LEUKOCYTE ESTERASE ,URINE 3+ (NEGATIVE); NITRITE,URINE NEGATIVE (NEGATIVE); PH,URINE 6.5 (5-9); PROTEIN,URINE 1+ (NEGATIVE); RBC,URINE 25-50 /HPF; WBC,URINE TNTC /HPF
[2023-08-02 18:10] LABS: BACTERIA,URINE LARGE /HPF
== END ==
LOC: LABNPT 17:46
PROVIDERS: ATTEND Internal Medicine
DX: Z01.89 Encounter for other specified special examinations (principal)
CPT/HCPCS: 81000; 87077; 87088; 87185; 87186

== ENCOUNTER → 2023-08-14 | Outpatient (CLI) | payer MEDICARE, OTHER, MEDICAID ==
[~2023-08-14] MED LIST changes: -DICL100G13 TOP; +DICL100G60 TOP
[2023-08-14 21:50] LABS: BACTERIA,URINE LARGE /HPF; BILIRUBIN,URINE NEGATIVE (NEGATIVE); CLARITY,URINE CLOUDY; COLOR,URINE YELLOW; GLUCOSE, URINE (UA) NEGATIVE (NEGATIVE); KETONES,URINE NEGATIVE (NEGATIVE); LEUKOCYTE ESTERASE ,URINE 3+ (NEGATIVE); NITRITE,URINE POSITIVE (NEGATIVE); PH,URINE 5.5 (5-9); PROTEIN,URINE 1+ (NEGATIVE); RBC,URINE 50-100 /HPF; WBC,URINE TNTC /HPF
== END ==
LOC: LABNPT 21:26
PROVIDERS: ATTEND Internal Medicine
DX: Z01.89 Encounter for other specified special examinations (principal)
CPT/HCPCS: 81000; 87088

== ENCOUNTER → 2023-11-01 | Outpatient (CLI) | payer MEDICARE, OTHER, MEDICAID ==
[2023-11-01 23:53] LABS: BACTERIA,URINE TRACE /HPF; BILIRUBIN,URINE NEGATIVE (NEGATIVE); CLARITY,URINE CLEAR; COLOR,URINE YELLOW; GLUCOSE, URINE (UA) NEGATIVE (NEGATIVE); KETONES,URINE NEGATIVE (NEGATIVE); LEUKOCYTE ESTERASE ,URINE TRACE (NEGATIVE); NITRITE,URINE NEGATIVE (NEGATIVE); PROTEIN,URINE NEGATIVE (NEGATIVE); SQUAMOUS EPITHELIAL CELL,UR RARE /HPF; WBC,URINE 0-2 /HPF
== END ==
LOC: CVS 23:39
PROVIDERS: ATTEND Internal Medicine
DX: Z01.818 Encounter for other preprocedural examination (principal)
CPT/HCPCS: 81000